=== PATIENT | female | born 1930 | race Caucasian/White ===

== ENCOUNTER 2019-05-29 14:01 | Inpatient (IN) | payer MEDICARE ==
[~2019-05-29] VITALS: Ht 160 cm; Wt 83.2 kg
[~2019-05-29 14:01] MED LIST: ARMOUR THYROID PO; BACTRIM DS TAB1 EACH PO; DILTIAZEM ER240 M1 PO; I-CAPS AREDS S1 EACH PO; ULTRAM50 MG PO
[2019-05-29 15:57] LABS: CLARITY,URINE SL CLOUDY (CLEAR); COLOR,URINE COLORLESS (YELLOW); KETONES,URINE NEGATIVE (NEGATIVE); LEUKOCYTE ESTERASE ,URINE SMALL (NEGATIVE); NITRITE,URINE NEGATIVE (NEGATIVE); PROTEIN,URINE DIPSTICK 1+ (NEGATIVE)
[2019-05-29 15:58] LABS: BACTERIA,URINE FEW /HPF; BILIRUBIN,URINE NEGATIVE (NEGATIVE); EPITHELIAL CELLS,URINE FEW /LPF; URINE UROBILINOGEN 0.2 mg/dL (0.2 - 1)
--- NOTE | 2019-05-29 16:45 | Diagnostic Imaging Report ---
EXAMINATION: CHEST SINGLE (NOT PORTABLE) INDICATION: Shortness of breath COMPARISON: Chest radiograph of 06/17/2014 FINDINGS: LINES/TUBES:None LUNGS:The right lung is moderately inflated. The left lung volume is low. Bibasilar airspace opacities silhouette both hemidiaphragms. There is perihilar fullness and indistinctness of the pulmonary vasculature. PLEURA:Small bilateral pleural effusions left greater than right. MEDIASTINUM:Cardiomegaly, increased from 06/17/2014. Atherosclerotic calcifications of the thoracic aorta. BONES/SOFT TISSUES:No acute osseous injury. ABDOMEN:No free air under the diaphragm. IMPRESSION: Cardiomegaly and pulmonary edema. Small bilateral pleural effusions left greater than right. Bibasilar airspace opacities, more likely subsegmental atelectasis than superimposed aspiration or pneumonia. Signed by: Jarrett Sheppard MD on 05/29/2019 4:42 PM
[2019-05-29 18:04] LABS: BASOPHILS % 0.5 % (0.0-1.0); EOSINOPHILS # (AUTO) 0.1 (0.0-0.4); EOSINOPHILS % 2.1 % (0.0-6.0); HEMATOCRIT 45.1 % (34.2-44.1); LYMPHOCYTES % 15.3 % (18.0-39.1); MEAN CORPUSCULAR HEMOGLOBIN 28.7 pg (28-32); MEAN CORPUSCULAR VOLUME 92.4 fL (81-99); MONOCYTES # (AUTO) 0.9 (0.2-0.8); MONOCYTES % 13.4 % (4.4-11.3); NEUTROPHILS # (AUTO) 4.3 (2.1-6.9); NEUTROPHILS % 67.8 % (38.7-80.0); PLATELET COUNT 184 x10e3/uL (140-360); RED BLOOD COUNT 4.88 x10e6/uL (3.6-5.1)
[2019-05-29 18:12] LABS: INR 0.95; PROTHROMBIN TIME 13.2 seconds (11.9-14.5)
[2019-05-29 18:13] LABS: PARTIAL THROMBOPLASTIN TIME 29.6 seconds (23.8-35.5)
[2019-05-29 18:21] LABS: ALBUMIN 3.5 g/dL (3.5-5.0); ALBUMIN/GLOBULIN RATIO 1.1 (0.8-2.0); ANION GAP 12.6 mmol/L (8-16); CALCIUM 9.3 mg/dL (8.4-10.2); CREATININE, SERUM 1.18 mg/dL (0.57-1.11); POTASSIUM 4.6 mmol/L (3.5-5.1)
[2019-05-29 18:27] LABS: CREATINE KINASE MB 6.1 ng/mL (0-5.0)
[2019-05-29] MEDS ORDERED: ONDANSETRON HCL INJ 2MG/ML 2ML 2 MG/ML VIAL IV PRN (19:00)
[2019-05-29] MEDS ORDERED: FUROSEMIDE INJ 10 MG/ML 4 ML VIAL IV ONE (19:00)
--- OUTSIDE RECORDS SUMMARY | 2019-05-29 19:26 | XMS REPORT ---
Author Author [facility] Address Unknown Phone Unavailable Care Team Providers Care Physician Aide Name Role Phone Mandie CABRERA FERNANDO Unavailable Unavailable Problems This patient has no known problems. Allergies, Adverse Reactions, Alerts This patient has no known allergies or adverse reactions. Medications This patient has no known medications. Results Test Description Test Time Test Comments Text Results Atomic Results Result Comments CHEST SINGLE (NOT PORTABLE) 2019-05-29 16:40:00 [place] [address] Patient Name: TYRONE URBINA MR #: [id number] : 1930 Age/Sex: 88/F Req #: [id number] Adm Physician: Ordered by: OSIRIS IRAHETA FISHING VESSEL OPERATOR Report #: [id number] Location: ER Room/Bed: Procedure: [id number] DX/CHEST SINGLE (NOT PORTABLE) Exam Date: 05/29/19 Exam Time: 1600 REPORT STATUS: Signed EXAMINATION: CHEST SINGLE (NOT PORTABLE) INDICATION: Shortness of breath COMPARISON: Chest radiograph of 06/17/2014 FINDINGS: LINES/TUBES:None LUNGS:The right lung is moderately inflated. The left lung volume is low. Bibasilar airspace opacities silhouette both hemidiaphragms. There is perihilar fullness and indistinctness of the pulmonary vasculature. PLEURA:Small bilateral pleural effusions left greater than right. MEDIASTINUM:Cardiomegaly, increased from 06/17/2014. Atherosclerotic calcifications of the thoracic aorta. BONES/SOFT TISSUES:No acute osseous injury. ABDOMEN:No free air under the diaphragm. IMPRESSION: Cardiomegaly and pulmonary edema. Small bilateral pleural effusions left greater than right. Bibasilar airspace opacities, more likely subsegmental atelectasis than superimposed aspiration or pneumonia. Signed by: Murali Carter MD on 05/29/2019 4:42 PM Dictated By: MURALI CARTER MD 1642 Tra nscribed By: LEE ANN on 05/29/191641 COPY TO: OSIRIS IRAHETA NP
--- NOTE | 2019-05-29 19:55 | NUR ---
Received patient from ER. Patient resting in bed, no s/s of distress or c/o pain at this time. All safety measures in place. Family at bedside. Will continue to monitor.
[2019-05-29 20:44] VITALS: BP 144/82
[2019-05-29 20:45] VITALS: BP 144/82
[2019-05-29 20:48] VITALS: BP 144/82
[2019-05-29] MEDS: NITROGLYCERIN 2% OINT 1 GM PKT TOP SCH (21:19)
[2019-05-29 23:00] VITALS: BP 112/68
[2019-05-30] VITALS (9 sets, daily range): BP systolic 125–154; BP diastolic 63–92
[2019-05-30 01:27] LABS: CREATINE KINASE MB 4.6 ng/mL (0-5.0)
[2019-05-30] MEDS: NITROGLYCERIN 2% OINT 1 GM PKT TOP SCH (02:48)
[2019-05-30 05:48] LABS: BASOPHILS % 0.4 % (0.0-1.0); EOSINOPHILS # (AUTO) 0.1 (0.0-0.4); EOSINOPHILS % 2.4 % (0.0-6.0); HEMATOCRIT 42.7 % (34.2-44.1); HEMOGLOBIN 13.2 g/dL (12.0-16.0); LYMPHOCYTES # (AUTO) 0.7 (1.0-3.2); LYMPHOCYTES % 13.8 % (18.0-39.1); MEAN CORPUSCULAR HEMOGLOBIN 28.8 pg (28-32); MEAN CORPUSCULAR HGB CONC 30.9 g/dL (31-35); MEAN CORPUSCULAR VOLUME 93.2 fL (81-99); MONOCYTES # (AUTO) 0.9 (0.2-0.8); MONOCYTES % 16.9 % (4.4-11.3); NEUTROPHILS # (AUTO) 3.6 (2.1-6.9); NEUTROPHILS % 66.1 % (38.7-80.0); PLATELET COUNT 169 x10e3/uL (140-360); RED BLOOD COUNT 4.58 x10e6/uL (3.6-5.1)
[2019-05-30 06:10] LABS: ALBUMIN 3.1 g/dL (3.5-5.0); ALBUMIN/GLOBULIN RATIO 1.1 (0.8-2.0); ANION GAP 12.6 mmol/L (8-16); CALCIUM 8.9 mg/dL (8.4-10.2); CHOL/HDL RATIO 2.3 (3.0-3.6); CREATININE, SERUM 1.08 mg/dL (0.57-1.11); POTASSIUM 4.6 mmol/L (3.5-5.1)
[2019-05-30 06:27] LABS: CREATINE KINASE MB 4.7 ng/mL (0-5.0)
--- NOTE | 2019-05-30 07:19 | NUR ---
Bedside report given to oncoming nurse. Patient resting in bed, no s/s of distress or c/o pain at this time. All safety measures in place.
[2019-05-30] MEDS: ASPIRIN 81 MG ENTERIC COATED PO SCH (08:35)
[2019-05-30] MEDS: FUROSEMIDE INJ 10 MG/ML 4 ML VIAL IV SCH (10:47)
[2019-05-30] MEDS: THYROID 60 MG TAB PO SCH (10:47)
[2019-05-30] MEDS ORDERED: LEVOFLOXACIN 500 MG TAB PO SCH (11:15)
--- NOTE | 2019-05-30 11:23 | NUR ---
Notified Dr. Melo of redness and swelling to bilat lower ext. Received orders for Levaquin 500mg po daily.
[2019-05-30 13:50] LABS: CREATINE KINASE MB 5.6 ng/mL (0-5.0)
--- NOTE | 2019-05-30 17:09 | Consultation ---
DATE OF CONSULTATION: 05/30/2019 Cardiac Consultation REASON FOR THE CONSULTATION: Congestive heart failure, aortic stenosis, cellulitis of the lower extremity. HISTORY OF PRESENT ILLNESS: This is an 88-year-old lady, who is known to me for many years. Last seen in my office in May 2016. As per the patient's son, all the information taken from him. She moved to [facility] with her dementia almost 18 months ago. She came to here because it was such she was having irregular heart beating, but the main reason really was congestive heart failure. Swelling of the lower extremities, cough. Chest x-ray showed possible pneumonia, so patient came to this institution. Apparently, the patient was having easy fatigability, shortness of breath on exertion. She does have some orthopnea, but no paroxysmal nocturnal dyspnea. Her leg swelling is progressively worse. Redness noted on both shins. Her cardiac symptoms are easy fatigability, shortness of breath on exertion. No chest pain, class 3 to early class 4. There is orthopnea, possible paroxysmal nocturnal dyspnea. No syncope or presyncope. Swelling of the lower extremities, progressively worse. REVIEW OF SYSTEMS: GENERAL: The patient is forgetful. She walks with help of walker. She lives in assisted living place. She is nonsmoker and non-alcohol drinker. HEENT: Decreased hearing. PULMONARY AND CARDIAC: As per acute illness. No cough. No hemoptysis. GI: Belching, constipation at time. No nausea. No vomiting. HEMATOLOGY: Easy bruising, but no bleeding. : Incontinence. MUSCULOSKELETAL: Abnormal gait, knee pain. Peripheral vascular varicosity and chronic swelling of the lower extremities. SKIN: There are skin changes of the lower extremities. NEUROLOGIC: The patient is very, very forgetful and she is dependent on her care on the maintenance assistant she received. PAST MEDICAL HISTORY: 1. Aortic stenosis, latest echo done in our office in 2015 showed mean gradient of 27 mm, peak gradient of 50 mm with mild aortic and mitral regurgitation with trivial pericardial regurgitation. 2. Hypertension. 3. Hypothyroidism. 4. History of ovarian cancer status post chemotherapy and finished in September 2013. 5. Varicose vein. 6. 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 7. Stress fracture of the foot in 2012. 8. Obesity. 9. Hysterectomy. 10. Cholecystectomy. 11. Bilateral cataract surgery. 12. . 13. Appendectomy. 14. Bladder suspension. 15. Thyroidectomy. 16. Cyst removal of the right breast. 17. Umbilical hernia surgery. 18. Collagen implant in the bladder. 19. Incisional hernia surgery. 20. Right eye skin cancer. 21. Mesh placement in 2004 for incisional hernia. 22. Repeated urinary tract infection. SOCIAL HISTORY: She is a . She lost her . She stopped smoking in 1996. She used to be social alcohol drinker, but not anymore. She is retired from [employer]. HOME MEDICATIONS: Include Cartia 240 mg a day, Wayne Thyroid 60 mg a day, multivitamins, aspirin, and Lasix p.r.n. Bactrim for urinary tract infection. ALLERGIES: KEFLEX, FENTANYL, SYNTHROID, AMOXICILLIN, CLINDAMYCIN, MORPHINE, CODEINE. FAMILY HISTORY: Mother at age 81, complication of diabetes mellitus. Father at age 61 following CVA. One of her brother had already open-heart surgery. One sister, she got some mental problem. Two son, one son diabetic and he had already PCI, one daughter healthy. PHYSICAL EXAMINATION: GENERAL: Very nice lady. VITAL SIGNS: Height of 5 feet 3 inches, weight of 185 pounds, blood pressure 140/60, heart rate of 60, respiratory rate of 18. HEENT: Pupil are reactive. NECK: No elevation of jugular venous pulsation. CHEST: Bilateral crackles. HEART: Aortic stenosis murmur. ABDOMEN: Soft. EXTREMITIES: Dependent edema on the lower extremity all the way to the knee and then more edema is noted above the knee posteriorly. There is redness on her both shins. NEUROLOGIC: The patient is forgetful, but she is able to move her extremities. LABORATORY DATA: Sodium of 141, potassium 4.6, BUN 22, creatinine of 1. White blood cell count of 5.3, hemoglobin of 13.2, hematocrit 42%, and platelet count 169,000. EKG is not available, but looking at her echocardiogram, there is evidence of bundle-branch block. IMPRESSION AND PLAN: 1. Diastolic heart failure. 2. Arctic stenosis. 3. Dementia. 4. Hypertension. 5. Obesity. 6. Degenerative joint disease. 7. Survivor of ovarian cancer. 8. Edema, possible cellulitis of the lower extremities. 9. Repeated urine tract infection. 10. Hypothyroidism. My recommendation will be as follows: Gentle diuresis to help the leg edema and swelling, getting EKG. I will review her echocardiogram, which is already done, taking venous Doppler of the lower extremities to rule out DVT. Deep venous thrombosis prophylaxis. We can continue the Cardizem and Wayne Thyroid and aspirin, we will decrease it to 81 mg a day. I discussed the case with her son at length. We decided to treat her medically since the patient is having dementia, so for her cardiac issue treatment will be medical. We will follow the patient's progression with you. I would like to thank you for your kind referral. MD LALIT Gomez/MODL /[id number]
--- NOTE | 2019-05-30 19:40 | NUR ---
Received bedside report from day nurse. Assisted patient to restroom using walker. Patient now resting in bed, no s/s of distress or c/o pain at this time. All safety measures in place. Will continue to monitor.
[2019-05-31] VITALS (8 sets, daily range): BP systolic 107–170; BP diastolic 56–86
--- NOTE | 2019-05-31 02:13 | NUR ---
Patient had unwitnessed fall at 0144. Bed alarm went off. Upon entering room, patient found sitting on floor next to bed, platform walker within reach, O2 nasal cannula still in place. Stated that she had been trying to get out of bed. Last taken to restroom at 0009, last rounded on at 0057. Nursing staff had been assisting patient to restroom prior to this event. Upon admission, patient had been instructed to call for assistance prior to getting out of bed, with family present to reinforce teaching. Patient had verbalized understanding and had been able to demonstrate proper use of call light. Patient had been alert and oriented upon last round. Bed was locked and in low position, side rails up x3, call light placed within reach, bed alarm on. Toileting had been offered, but patient had stated that she wanted to get some sleep. Patient alert and oriented post-fall, neuro checks and assessment performed. Vital signs stable. C/o pain to left hip and left knee, with bruise noted below left knee. Dr. Melo notified at 0154. Stat x-rays of hip and knee ordered. Family notified at 0209. Will continue to monitor patient.
--- NOTE | 2019-05-31 02:37 | NUR ---
Patient leaving unit for x-ray via bed. In stable condition.
--- NOTE | 2019-05-31 03:03 | NUR ---
Patient returned to unit from x-ray. C/o pain to left lower extremity. Ice pack applied.
--- NOTE | 2019-05-31 03:29 | Diagnostic Imaging Report ---
HIP LEFT 2-3 VW (+/- PELVIS) - 3 views HISTORY: Pain COMPARISON: None available. IMPRESSION: Left femoral intertrochanteric fracture with superolateral displacement. Signed by: Dr. Weston Hawkins MD on 05/31/2019 3:27 AM
--- NOTE | 2019-05-31 03:30 | Diagnostic Imaging Report ---
KNEE LEFT 1-2 VIEWS - 2 views HISTORY: Pain COMPARISON: None available. FINDINGS: Bones: No acute displaced fracture. Osseous alignment is within normal limits. Joints: Tricompartmental degenerative changes. Soft tissues: Mild subcutaneous edema. IMPRESSION: No acute fracture or dislocation of the left knee. Degenerative changes. Signed by: Dr. Weston Hawkins MD on 05/31/2019 3:28 AM
--- NOTE | 2019-05-31 05:15 | NUR ---
Placed call to Dr. Hamlin regarding consult for fracture and dislocated left hip. Spoke with answering service. Awaiting return call at this time.
[2019-05-31] MEDS: THYROID 60 MG TAB PO SCH (05:19)
[2019-05-31 06:22] LABS: BASOPHILS % 0.3 % (0.0-1.0); EOSINOPHILS # (AUTO) 0.1 (0.0-0.4); EOSINOPHILS % 0.9 % (0.0-6.0); HEMATOCRIT 45.6 % (34.2-44.1); HEMOGLOBIN 13.5 g/dL (12.0-16.0); LYMPHOCYTES # (AUTO) 0.6 (1.0-3.2); LYMPHOCYTES % 6.3 % (18.0-39.1); MEAN CORPUSCULAR HEMOGLOBIN 28.2 pg (28-32); MEAN CORPUSCULAR HGB CONC 29.6 g/dL (31-35); MEAN CORPUSCULAR VOLUME 95.4 fL (81-99); MONOCYTES # (AUTO) 0.9 (0.2-0.8); MONOCYTES % 8.8 % (4.4-11.3); NEUTROPHILS # (AUTO) 8.1 (2.1-6.9); NEUTROPHILS % 83.1 % (38.7-80.0); PLATELET COUNT 161 x10e3/uL (140-360); RED BLOOD COUNT 4.78 x10e6/uL (3.6-5.1); RED CELL DISTRIBUTION WIDTH 14.8 % (11.7-14.4)
--- NOTE | 2019-05-31 06:58 | NUR ---
Dr. Melo here to see patient. Received orders to insert Vu, change Levaquin from PO to IV, and give IV Tylenol 1 g Q6 PRN for pain.
[2019-05-31 06:59] LABS: ALBUMIN 3.2 g/dL (3.5-5.0); ALBUMIN/GLOBULIN RATIO 1.1 (0.8-2.0); ANION GAP 16.5 mmol/L (8-16); CALCIUM 9.3 mg/dL (8.4-10.2); CHOL/HDL RATIO 2.2 (3.0-3.6); CREATININE, SERUM 1.1 mg/dL (0.57-1.11); POTASSIUM 4.5 mmol/L (3.5-5.1)
[2019-05-31] MEDS ORDERED: ACETAMINOPHEN 1000 MG/100 ML IV PRN (07:00)
--- NOTE | 2019-05-31 07:11 | NUR ---
Report given to oncoming nurse. Patient resting in bed, no s/s of distress at this time. C/o of pain to left lower extremity. Ice pack provided. All safety measures in place. Bed locked and in low position, bed alarm, call light placed within reach, side rails up x3. Patient instructed to call for assistance if needed, verbalized and demonstrated understanding.
[2019-05-31 07:28] LABS: THYROID STIMULATING HORMONE 1.15 uIU/mL (0.350-4.940)
[2019-05-31] MEDS ORDERED: SODIUM CHLORIDE 0.9% 250ML 250 ML ONE (08:00)
[2019-05-31] MEDS: FUROSEMIDE INJ 10 MG/ML 4 ML VIAL IV SCH (08:23)
[2019-05-31] MEDS: ASPIRIN 81 MG ENTERIC COATED PO SCH (09:00)
[2019-05-31] MEDS ORDERED: DILTIAZEM HCL 180 MG CAP ER PO SCH (09:00)
--- NOTE | 2019-05-31 10:00 | NUR ---
Notified Dr. Rizzo that pt is running AFIB. Also let him know that pt needs. Cardiac clearance for possible surgery. Dr. Rizzo states she is cleared for surgery from his standpoint.
--- NOTE | 2019-05-31 10:51 | NUR ---
Repaged Dr. Hamlin about new consult at this time. Waiting for callback.
--- NOTE | 2019-05-31 11:00 | NUR ---
Notified Dr. Melo that pt is still having a lot of pain to left hip. Received orders to start Tramadol 50mg PO q4hr.
[2019-05-31] MEDS: LEVOFLOXACIN 500MG/D5W 100ML 100 ML IV SCH (11:07)
[2019-05-31] MEDS: TRAMADOL HCL 50 MG TAB PO PRN ×2 (11:29→15:49)
--- NOTE | 2019-05-31 15:42 | NUR ---
Nutrition Screen Note RD Recommendation for Physician: Continue diet as ordered Plan of Care: RD following, monitoring for tolerance and adequacy Nutrition reason for involvement: New onset heart failure Primary Diagnose(s): New onset heart failure PMH: HTN, repeat UTI, Hypothyroid, Cholecystectomy, obesity, dementia, thyroidectomy, Ht:63 in Wt:185.70lb BMI:32.9 kg/m2 IBW:115lb +/-10% RD Assessment: (05/31/2019) Chart reviewed. Labs and meds reviewed. Initial encounter with patient. Pt with a fall last night with hip fx. Pt with a good PO intake, Pt denies any nausea or vomiting. Pt denies any difficulty chewing or swallowing. Pt is a resident of an assisted living facility. Discussed low sodium diet with Pt and family. Current Diet: Cardiac diet Malnutrition Evaluation (05/31/2019) The patient does not meet criteria for a specified degree of malnutrition at this time. Will re-evaluate at follow-up as appropriate. Diet Education Needs Assessment: Diet education not indicated. Nutrition Care Level: Low Signed: Phillip Vazquez RD, LD, [facility]
[2019-06-01] VITALS (26 sets, daily range): BP systolic 84–147; BP diastolic 47–93
--- NOTE | 2019-06-01 00:09 | Consultation ---
DATE OF CONSULTATION: 05/31/2019 Consultation Report CHIEF COMPLAINT: Left hip pain. HISTORY OF PRESENT ILLNESS: This patient is an 88-year-old female, who complains of left hip pain after suffering a fall early this morning in the hospital. She was hospitalized 2 days ago for congestive heart failure. The patient has a history of dementia. Further history was obtained from the family and the nurse. Apparently, she was trying to get up from the hospital bed and fell to the floor. She was unable to get up and bear weight on the left leg. X-rays were obtained, which show a left hip fracture and thus Orthopedics were consulted. PAST MEDICAL HISTORY: See H and P. SOCIAL HISTORY: The patient is a . She is a former smoker and social drinker. She currently lives in assisted living. MEDICATIONS: See MAR. ALLERGIES: KEFLEX, FENTANYL, SYNTHROID, AMOXICILLIN, CLINDAMYCIN, MORPHINE, AND CODEINE. PHYSICAL EXAMINATION: GENERAL: This is a pleasant, well-nourished female, who exhibits signs of mild dementia. She is awake and alert. She is in no apparent distress. EXTREMITIES: Her left lower extremity is in Bennett's traction. She has shortening of the left lower extremity. Any attempts of passive range of motion of the left hip elicit pain. She has mild lower extremity edema. She can wiggle her toes, though left foot is grossly sensate. Tibial pulse and pedal pulse are both palpable. IMAGING: X-rays of the left hip and pelvis were obtained. These show a displaced left intertrochanteric hip fracture. ASSESSMENT AND PLAN: This is an 88-year-old female with a left hip fracture. The findings and options were discussed with the patient and her family present. She ambulated with a walker prior to the surgery. Her family indicates that she was fairly independent of her ADLs. The treatment was discussed. The risks and benefits of closed reduction and internal fixation with an IMHS nail were explained in detail. The difficult recovery was explained. Increased difficulties in participating in physical therapy, secondary to her dementia were explained. She has already been cleared from a cardiac standpoint. The family and the patient state they understand and wish to proceed with surgery. We will anticipate proceeding with surgery early tomorrow morning. Dictated by Brody Freed PA-C MD MURALI Byrne/KUMARL /[id number]
[2019-06-01] MEDS: TRAMADOL HCL 50 MG TAB PO PRN (02:04)
[2019-06-01] MEDS ORDERED: VANCOMYCIN 1GM/NS 250 ML 250 ML IV SCH ×2 (05:30→11:45)
[2019-06-01] MEDS: THYROID 60 MG TAB PO SCH (06:28)
--- NOTE | 2019-06-01 07:40 | NUR ---
PATIENT IS ALERT TO SELF AND IN STABLE CONDITION WITH NO S/S OF RESPIRATORY DISTRESS- PATIENT DENIES PAIN. TELEMETRY APPLIED AND 02 SET AT 2L NC. FOX IN PLACE; URINE IS YELLOW AND CLEAR. PATIENT'S LEFT LOWER EXTREMITY IS IN CAICEDO'S TRACTION 5LBS. BRUISE NOTED TO LEFT LOWER LEG BELOW KNEE. BED ALARM APPLIED. CALL LIGHT IS WITHIN REACH OF PATIENT AND PATIENT INSTRUCTED TO CALL FOR ASSISTANCE NEEDED.
[2019-06-01] MEDS ORDERED: VANCOMYCIN 1GM/NS 250 ML 250 ML IV ONE (08:00)
[2019-06-01] MEDS: VANCOMYCIN 1GM/NS 250 ML 250 ML IV SCH ×2 (08:06→20:00)
[2019-06-01] MEDS: FUROSEMIDE INJ 10 MG/ML 4 ML VIAL IV SCH (08:06)
[2019-06-01] MEDS: ASPIRIN 81 MG ENTERIC COATED PO SCH (08:06)
--- NOTE | 2019-06-01 09:41 | NUR ---
PATIENT OFF THE UNIT PER BED TO OR FOR PROCEDURE. PATIENT IN STABLE CONDITION WITH NO S/S OF RESPIRATORY DISTRESS. TELEMETRY APPLIED. FOX INTACT AND URINE DRAINING. FAMILY (CHILDREN)PRESENT AND FOLLOWING THE PATIENT OFF THE FLOOR.
[2019-06-01] MEDS ORDERED: HEPARIN SOD/SOD CHLORIDE 1,000 ML ONE (09:54)
[2019-06-01] MEDS ORDERED: HYDROMORPHONE 1MG/1ML INJ ONE (10:03)
[2019-06-01] MEDS ORDERED: SODIUM CHLORIDE 0.9% 50ML 50 ML ONE (10:11)
[2019-06-01] MEDS: LEVOFLOXACIN 500MG/D5W 100ML 100 ML IV SCH (11:00)
[2019-06-01] MEDS ORDERED: SUGAMMADEX SODIUM 200 MG/2 ML VIAL IV ONE (11:17)
[2019-06-01] MEDS ORDERED: ZOLPIDEM TARTRATE 5 MG TAB PO PRN (11:45)
[2019-06-01] MEDS ORDERED: DIPHENHYDRAMINE HCL INJ 50 MG/ML VIAL IM/IV PRN (11:45)
[2019-06-01] MEDS ORDERED: ONDANSETRON HCL INJ 2MG/ML 2ML 2 MG/ML VIAL IV PRN (11:45)
[2019-06-01] MEDS ORDERED: PROMETHAZINE HCL (IM) 25 MG/ML VIAL IM PRN (11:45)
[2019-06-01] MEDS ORDERED: DOCUSATE SODIUM 100 MG CAP PO PRN (11:45)
[2019-06-01] MEDS: ACETAMINOPHEN 1000 MG/100 ML IV SCH ×2 (12:00→18:58)
[2019-06-01] MEDS ORDERED: ALBUMIN 25% 12.5GM 50ML 50 ML IV ONE (12:51)
[2019-06-01 12:59] LABS: ABG HCO3 30 mmol/L (23-28); ABG PCO2 53 mmHg (41-51); ABG PH 7.35 (7.31-7.41); ABG PO2 196 mmHg (80-105)
[2019-06-01] MEDS ORDERED: VASOPRESSIN 100 UNIT in DEXTROSE 5% 100ML 100 ML IV PRN (14:15)
--- NOTE | 2019-06-01 14:30 | NUR ---
patient received from pacu via bed. epi infusing at 13mcg/min. Dr Rizzo in and instructed to start vasopressin and wean off epi. awaiting vaso drip. left hip dressing dry and intact. see shift assess. restraints to be initiated. labs and blood gas being done and results will be called to Dr Leo for further orders. family wants no compressions or shocks . will monitor status closely.
[2019-06-01] MEDS: MIDAZOLAM HCL 2 MG/2 ML VIAL IV PRN ×3 (14:52→19:57)
[2019-06-01] MEDS ORDERED: DEXMEDETOMIDINE HCL 200 MCG in SODIUM CHLORIDE 0.9% 50ML 48 ML IV PRN (15:00)
[2019-06-01] MEDS: SODIUM CHLORIDE 0.9% 1000ML 1,000 ML IV SCH ×2 (15:00→22:16)
[2019-06-01 15:05] LABS: BASOPHILS % 0.1 % (0.0-1.0); EOSINOPHILS % 0.1 % (0.0-6.0); HEMATOCRIT 32.7 % (34.2-44.1); HEMOGLOBIN 10.1 g/dL (12.0-16.0); LYMPHOCYTES # (AUTO) 0.7 (1.0-3.2); LYMPHOCYTES % 5.1 % (18.0-39.1); MEAN CORPUSCULAR HEMOGLOBIN 28.6 pg (28-32); MEAN CORPUSCULAR HGB CONC 30.9 g/dL (31-35); MEAN CORPUSCULAR VOLUME 92.6 fL (81-99); MONOCYTES # (AUTO) 0.5 (0.2-0.8); MONOCYTES % 4.1 % (4.4-11.3); NEUTROPHILS # (AUTO) 11.9 (2.1-6.9); PLATELET COUNT 131 x10e3/uL (140-360); RED BLOOD COUNT 3.53 x10e6/uL (3.6-5.1); RED CELL DISTRIBUTION WIDTH 14.7 % (11.7-14.4)
[2019-06-01 15:06] LABS: ABG PH 7.37 (7.31-7.41)
[2019-06-01 15:07] LABS: ABG HCO3 29 mmol/L (23-28); ABG PCO2 51 mmHg (41-51); ABG PO2 222 mmHg (80-105)
[2019-06-01 15:26] LABS: ALBUMIN 2.5 g/dL (3.5-5.0); ALBUMIN/GLOBULIN RATIO 1.3 (0.8-2.0); ANION GAP 20.7 mmol/L (8-16); CALCIUM 7.4 mg/dL (8.4-10.2); CREATININE, SERUM 1.21 mg/dL (0.57-1.11); POTASSIUM 3.7 mmol/L (3.5-5.1)
[2019-06-01 15:34] LABS: CREATINE KINASE MB 8.1 ng/mL (0-5.0)
[2019-06-01] MEDS: ASPIRIN 325 MG TAB PO SCH (15:34)
[2019-06-01] MEDS: CELECOXIB 200 MG CAP PO SCH (15:35)
[2019-06-01] MEDS: MIDAZOLAM HCL 25 MG in SODIUM CHLORIDE 0.9% 50ML 45 ML IV PRN ×2 (16:46→19:57)
--- NOTE | 2019-06-01 17:13 | Diagnostic Imaging Report ---
EXAMINATION: CHEST SINGLE (PORTABLE) INDICATION: Intubation COMPARISON: Chest radiograph 05/29/2019 FINDINGS: LINES/TUBES:Interval intubation. Endotracheal tube terminates 4 cm above the jannette. Right IJ central venous catheter terminates in the superior vena cava. EKG leads overlie the chest. LUNGS:The lungs are moderately inflated. There is perihilar fullness and indistinctness of the pulmonary vasculature. There is left basilar opacity silhouetting the left gauri diaphragm. PLEURA:Unchanged left pleural effusion. No pneumothorax. MEDIASTINUM:Cardiomediastinal silhouette is stably enlarged. Atherosclerotic calcifications of the thoracic aorta. BONES/SOFT TISSUES:No acute osseous injury. ABDOMEN:No free air under the diaphragm. IMPRESSION: Endotracheal tube terminates 4 cm above the jannette. Unchanged cardiomegaly and pulmonary edema. Moderate left pleural effusion. Mild interval increase in patchy opacity at the left lung base, more likely subsegmental atelectasis than superimposed aspiration or pneumonia. Signed by: Jarrett Sheppard MD on 06/01/2019 5:10 PM
--- NOTE | 2019-06-01 17:30 | NUR ---
Holding physical therapy services due to medical status change. Patient is currently intubated in ICU. Will need new PT orders when appropriate. Thank you. Addendum: 06/01/19 at 1734 by Gennaro wren PT Amended: Links added.
[2019-06-01] MEDS ORDERED: ACETAMINOPHEN 1000 MG/100 ML IV ONE (18:18)
[2019-06-01] MEDS ORDERED: LIDOCAINE HCL 2% LOCAL INJ 5 ML SDV VIAL INJ ONE (18:18)
[2019-06-01] MEDS ORDERED: ATROPINE SULFATE 1 MG/ML VIAL ONE (18:18)
[2019-06-01] MEDS ORDERED: SEVOFLURANE INHAL SOLN 250 ML PEN BTL ONE (18:18)
[2019-06-01] MEDS ORDERED: ONDANSETRON HCL INJ 2MG/ML 2ML 2 MG/ML VIAL ONE (18:18)
[2019-06-01] MEDS ORDERED: ETOMIDATE 2 MG/ML 10 ML INJ IV ONE (18:18)
[2019-06-01] MEDS ORDERED: SUCCINYLCHOLINE CHLORIDE 20 MG/ML 10ML VIAL ONE (18:18)
[2019-06-01] MEDS ORDERED: PHENYLEPHRINE HCL 1% 10 MG/ML VIAL ONE (18:18)
[2019-06-01] MEDS ORDERED: DEXAMETHASONE SOD PHOS INJ 4 MG/ML VIAL ONE (18:18)
[2019-06-01] MEDS ORDERED: ROCURONIUM BROMIDE 10 MG/ML 5ML VIAL ONE (18:18)
--- NOTE | 2019-06-01 18:23 | NUR ---
epinephrine weaned off and vasopressin at 0.04. family at bs. versed at 4mg/hr. vitals stable with no distress at this time.
--- NOTE | 2019-06-01 19:19 | Operative Report ---
DATE OF PROCEDURE: 06/01/2019 SURGEON: Rogelio Hamlin MD FLAT FOLDING MACHINE OPERATOR: Brody Freed, certified PA. PREOPERATIVE DIAGNOSIS: Comminuted left intertrochanteric hip fracture. POSTOPERATIVE DIAGNOSIS: Comminuted left intertrochanteric hip fracture. PROCEDURE: Open reduction and internal fixation with long intramedullary hip screw, left hip. INDICATION: The patient is a medically frail 88-year-old lady, who fell while in the hospital. She sustained a comminuted unstable intertrochanteric fracture of her left hip. She has been cleared from a cardiologic standpoint. She has a history of dementia. We have discussed the findings and options and challenges with the family. We plan on surgical stabilization. The risks and benefits were detailed. All of their questions were answered. They stated they understood and wished to proceed. DESCRIPTION OF PROCEDURE: The patient was brought to the operating room and placed under general anesthetic. She was carefully positioned on the fracture table. Her left lower extremity was placed into gentle traction. A C-arm image intensifier was used to assist in visualizing the fracture alignment. The left hip was then prepped and draped in a sterile manner. A preoperative time-out was performed. An incision was made proximal to the tip of the greater trochanter. A curved awl was used to introduce a guide pin down this shaft to the femoral canal. Bone quality was noted to be very poor and I could easily place the guide pin through the bone. The femoral canal was then carefully over-reamed to 14 mm, this accomplished some endosteal platter with the 14 mm reamer. A Nathan/Biomet 13 mm x 380 mm long intramedullary hip screw was then placed into the femoral canal. This was lined up on the C-arm image intensifier to place 100 mm lag screw into the femoral head, this was placed under some compression and a locking screw was tensioned in the nail. No distal fixation was felt to be necessary. The wound was carefully irrigated. The deep fascia and skin were closed with Vicryl stitches. Mastisol and Steri-Strips were placed. Estimated blood loss was 50 mL. At the end of the procedure, all needle and sponge counts were correct. Rogelio Hamlin MD DR/JEREMIAH /[id number]
[2019-06-01 21:19] LABS: ANISOCYTOSIS SLIGHT; HYPOCHROMASIA SLIGHT; OVALOCYTES FEW; PLATELET ESTIMATE SLIGHTLY DECREASED; PLATELET MORPHOLOGY COMMENT NORMAL
[2019-06-01 21:20] LABS: RBC MORPHOLOGY COMMENT NORMAL
[2019-06-02] VITALS (28 sets, daily range): BP systolic 12–154; BP diastolic 46–106
--- NOTE | 2019-06-02 00:11 | Consultation ---
DATE OF CONSULTATION: 06/01/2019 Pulmonary Critical Care Medicine Consult ADDITIONAL REFERRING PHYSICIAN: Raj Melo MD REASON FOR REFERRAL: Arrest. HISTORY OF PRESENT ILLNESS: Ms. Cruz is a pleasant 88-year-old female who is status post arrest. The patient presented to [facility] on May 29, 2019. At that time, the patient had assessment of shortness of breath. The patient is having some increased swelling in the lower extremities. There was some additional cough. Chest x-ray suggested some fluid overload pattern, so she came to the emergency room. She was admitted. The patient had echo with 65-70 percent LVEF, aortic valve area 0.9 cm2, RVSP 31 estimated. She was admitted, but while she was admitted, she had a fall. She had a left hip fracture. The patient went for operative repair, which was done successfully. The patient postoperatively was noted to have arrest after extubation. After reportedly about 1-1/2 minutes of CPR, she had return of circulation. The patient was left intubated and sent to the ICU. Pressures were normal. She was then intubated. PAST MEDICAL HISTORY: Aortic stenosis, hypertension, hypothyroidism, ovarian cancer status post chemotherapy in September 2013, degenerative joint disease, stress fracture of foot 2012, obesity, hysterectomy, cholecystectomy, bilateral cataract surgery, , appendectomy, bladder suspension, thyroidectomy, cyst removal of the right breast, umbilical hernia surgery, bladder implant, incisional hernia surgery, right eye skin cancer, incisional hernia in 2004, mesh placement repair. MEDICATIONS: Medication list reviewed per the chart record. ALLERGIES: FENTANYL, ADHESIVE TAPE, CLINDAMYCIN, CEPHALEXIN, LEVOTHYROXINE, CODEINE, MORPHINE. FAMILY HISTORY: Noncontributory to this condition. SOCIAL HISTORY: No drinking. No drugs. The patient smokes all her life and quit at age 68, and she smoked one pack per day. The patient was able to walk with a walker for 10 to 100 feet depending on her condition that day. The patient lives at assisted living. She is . Conversations were on and off depending on how good her memory was. REVIEW OF SYSTEMS: Cannot get as she is intubated. OBJECTIVE: VITAL SIGNS: Vital signs now more stable, but they were kind of unstable throughout the day. HEENT: Normocephalic, atraumatic. GENERAL: Generally in bed, intubated, on life support, nursing reports that patient was awake. NECK: Supple. Throat midline. LUNGS: Bilateral air entry, decreased breath sounds, few rhonchi. ABDOMEN: Soft, nontender. CARDIOVASCULAR: S1, S2. There is a systolic flow murmur . EXTREMITIES: No clubbing, no cyanosis. There is 2+ edema in legs. INTEGUMENT: No rash. No purpura. LABORATORY DATA: . IMPRESSION AND PLAN: 1. Acute respiratory failure, intubated. 2. Status post cardiac arrest, possibly related to her cirrhosis. 3. Hip fracture status post operative repair. 4. CHF, diastolic/aortic stenosis. 5. Possible pneumonia. 6. Shock, that is treated, now better. 7. Dementia. Hypertension, hypothyroid, history of ovarian cancer and chemotherapy finished in September 2013, degenerative joint disease, former long-term smoker. Continued intubated state. Ventilator adjustments made. The patient will have continued weaning of pressors and so far is successful. Continue initial fluid but will slow down throughout the night. Furthermore, adjust sedation based on her mentation every hour and it most likely we should be able to come down sedation even middle night. Followup blood sugars. Gentle diuresis once the patient stabilized. Greater than 30 minutes in direct care and coordination was state. Please call for questions. MD NICOLAS Carson/JEREMIAH /[id number]
[2019-06-02] MEDS: ACETAMINOPHEN 1000 MG/100 ML IV SCH ×2 (00:21→05:28)
[2019-06-02] MEDS ORDERED: DEXTROSE 50% SYRINGE 50 ML IV PRN (01:30)
[2019-06-02] MEDS: MIDAZOLAM HCL 25 MG in SODIUM CHLORIDE 0.9% 50ML 45 ML IV PRN ×2 (01:50→21:03)
[2019-06-02 05:25] LABS: HEMATOCRIT 28.8 % (34.2-44.1); HEMOGLOBIN 9.1 g/dL (12.0-16.0); LYMPHOCYTES # (AUTO) 0.4 (1.0-3.2); LYMPHOCYTES % 5.2 % (18.0-39.1); MEAN CORPUSCULAR HEMOGLOBIN 28.6 pg (28-32); MEAN CORPUSCULAR HGB CONC 31.6 g/dL (31-35); MEAN CORPUSCULAR VOLUME 90.6 fL (81-99); MONOCYTES # (AUTO) 0.5 (0.2-0.8); MONOCYTES % 6.7 % (4.4-11.3); NEUTROPHILS # (AUTO) 6.4 (2.1-6.9); NEUTROPHILS % 87.6 % (38.7-80.0); PLATELET COUNT 109 x10e3/uL (140-360); RED BLOOD COUNT 3.18 x10e6/uL (3.6-5.1); RED CELL DISTRIBUTION WIDTH 14.8 % (11.7-14.4)
[2019-06-02] MEDS: THYROID 60 MG TAB PO SCH (05:28)
[2019-06-02 05:47] LABS: ALBUMIN 2.4 g/dL (3.5-5.0); ALBUMIN/GLOBULIN RATIO 1.1 (0.8-2.0); ANION GAP 16.2 mmol/L (8-16); CALCIUM 7.5 mg/dL (8.4-10.2); CREATININE, SERUM 1.33 mg/dL (0.57-1.11); MAGNESIUM 1.4 MG/DL (1.3-2.1); POTASSIUM 4.2 mmol/L (3.5-5.1)
[2019-06-02] MEDS: INSULIN REGULAR, HUMAN 100 UNIT/1 ML 3ML VIAL SQ SCH ×3 (06:00→18:00)
--- NOTE | 2019-06-02 06:36 | Progress Note ---
DATE: 06/02/2019 SUBJECTIVE: The patient had her left hip surgery yesterday which went well, but postoperatively in the PACU after extubation, the patient had an episode where she did have a code blue situation where she was resuscitated back very quickly and was reintubated for airway protection and then sent to the ICU. While in the ICU, the patient had an uneventful night where hemodynamically she was stable. She was stable on the ventilator and cardiac enzymes have been negative. OBJECTIVE: VITAL SIGNS: Today, currently her vital signs are she is afebrile 98.6, pulse 74, blood pressure 124/76, and sats 99% on the ventilator. GENERAL: She is sedated on the vent. CARDIOVASCULAR: Regular rate and rhythm, 3/6 systolic ejection murmur at the aortic area, which is stable. LUNGS: Clear to auscultation bilaterally. ABDOMEN: Good bowel sounds. Soft, nontender. EXTREMITIES: No clubbing, cyanosis. NEUROLOGICAL: She is intubated. ASSESSMENT AND PLAN: 1. Status post code. Continue with current care, but unsure of the etiology. 2. Acute respiratory failure. Continue with weaning the ventilator. She most likely will be off the ventilator today per Pulmonary. 3. Left hip repair. We will continue with postoperative care. 4. Acute on chronic diastolic heart failure. Continue with current care per Cardiology. 5. Disposition. I did have a long talk with the son, who is very pleasant and states that he wants his mother to be a full DNR from this point on. Please see hospital chart for full details. MD GUTIERREZ Valentin/JEREMIAH /[id number]
[2019-06-02] MEDS: CELECOXIB 200 MG CAP PO SCH ×2 (08:00→18:29)
[2019-06-02] MEDS: VANCOMYCIN 1GM/NS 250 ML 250 ML IV SCH ×2 (08:03→20:00)
[2019-06-02] MEDS: FUROSEMIDE INJ 10 MG/ML 4 ML VIAL IV SCH (08:03)
[2019-06-02] MEDS: ASPIRIN 325 MG TAB PO SCH ×2 (08:04→17:26)
--- NOTE | 2019-06-02 09:35 | Diagnostic Imaging Report ---
EXAMINATION: CHEST SINGLE (PORTABLE) INDICATION: CHF COMPARISON: Chest radiograph 06/01/2019 FINDINGS: LINES/TUBES:Endotracheal tube terminates 4 cm above the jannette. Right IJ central venous catheter terminates in the superior vena cava. EKG leads overlie the chest. LUNGS:The right lung is mildly hyperinflated. Left lung volume is low. There is perihilar fullness and indistinctness of the pulmonary vasculature. There is left basilar opacity silhouetting the left gauri diaphragm. PLEURA:Moderate left pleural effusion. No pneumothorax. MEDIASTINUM:Cardiomediastinal silhouette is stably enlarged. Atherosclerotic calcifications of the thoracic aorta. BONES/SOFT TISSUES:No acute osseous injury. ABDOMEN:No free air under the diaphragm. IMPRESSION: Support lines and tubes unchanged. Unchanged cardiomegaly and pulmonary interstitial edema. Moderate left pleural effusion. Patchy opacity at the left lung base appears unchanged, more likely subsegmental atelectasis than superimposed aspiration or pneumonia. Signed by: Jarrett Sheppard MD on 06/02/2019 9:32 AM
[2019-06-02] MEDS: LEVOFLOXACIN 500MG/D5W 100ML 100 ML IV SCH (11:53)
[2019-06-02] MEDS ORDERED: HYDROCODONE/APAP 5MG-325MG TAB PO PRN (12:00)
[2019-06-02] MEDS ORDERED: ACETAMINOPHEN 1000 MG/100 ML IV PRN (12:00)
[2019-06-02] MEDS ORDERED: ACETAMINOPHEN 650 MG SUPP PR PRN (12:00)
[2019-06-02] MEDS ORDERED: HYDROCODONE/APAP 7.5MG-325MG 1 EA TAB PO PRN (12:00)
--- NOTE | 2019-06-02 15:01 | Diagnostic Imaging Report ---
Bilateral chest ultrasound History: Pleural effusion Technique/findings: Limited bilateral chest ultrasound was performed to evaluate for pleural effusion. This demonstrated moderate right and left pleural effusions, somewhat loculated on the left. IMPRESSION: Moderate right and left pleural effusions, somewhat loculated on the left. Signed by: Jarrett Sheppard MD on 06/02/2019 2:58 PM
[2019-06-02] MEDS: DEXTROSE 5% 1,000 ML IV SCH (15:29)
[2019-06-02] MEDS: SPIRONOLACTONE 25 MG TAB PO SCH (17:26)
[2019-06-02] MEDS: ENOXAPARIN SOD INJ 40 MG/0.4 ML SYR SC SCH (17:27)
--- NOTE | 2019-06-02 17:31 | NUR ---
ngt placed in right nare. no difficulty. confirmed and verified placement
[2019-06-03] VITALS (27 sets, daily range): BP systolic 24–156; BP diastolic 53–91
--- NOTE | 2019-06-03 04:56 | NUR ---
Pulmonary Critical Care Medicine DATE 06/02/2019 SUBJECTIVE : VERSED 4/ intubated on ventilator slow awakening CXr some edema, effusion REVIEW OF SYSTEMS: Cannot get as she is intubated. OBJECTIVE: VITAL SIGNS: Vital signs reviewed per EMR HEENT: Normocephalic, atraumatic. GENERAL: Generally in bed, intubated, on life support NECK: Supple. Throat midline. LUNGS: Bilateral air entry, decreased breath sounds, few rhonchi. ABDOMEN: Soft, nontender. CARDIOVASCULAR: S1, S2. systolic flow murmur EXTREMITIES: No clubbing, no cyanosis. 2+ edema in legs. INTEGUMENT: No rash. No purpura. LABORATORY DATA: per EMR cr 1.33 hct 28.8 alb 2.4 IMPRESSION AND PLAN: 1. Acute respiratory failure, intubated. 2. Status post cardiac arrest, possibly related to her cirrhosis. 3. Hip fracture status post operative repair. 4. CHF, diastolic/aortic stenosis. 5. Possible pneumonia. 6. Shock, that is treated, now better. 7. Dementia. 8. fluid overload, pleural effusion 9. Hypertension, hypothyroid, history of ovarian cancer and chemotherapy finished in September 2013, degenerative joint disease, former long-term smoker. Continued intubated state. Ventilator adjustments Daily SAT, daily SBT if criteria met Decrease IVF Diurese to commence shortly Check US chest Followup blood sugars. Thank you Dr Melo.
[2019-06-03 05:19] LABS: EOSINOPHILS % 0.1 % (0.0-6.0); HEMOGLOBIN 8.5 g/dL (12.0-16.0); LYMPHOCYTES # (AUTO) 0.6 (1.0-3.2); LYMPHOCYTES % 6.1 % (18.0-39.1); MEAN CORPUSCULAR HEMOGLOBIN 28.3 pg (28-32); MEAN CORPUSCULAR HGB CONC 31.5 g/dL (31-35); MONOCYTES # (AUTO) 0.8 (0.2-0.8); MONOCYTES % 8.5 % (4.4-11.3); NEUTROPHILS # (AUTO) 7.6 (2.1-6.9); PLATELET COUNT 106 x10e3/uL (140-360)
--- NOTE | 2019-06-03 05:22 | Progress Note ---
DATE: 06/03/2019 SUBJECTIVE: The patient did well overnight. No new issues. She was unfortunately not able to be extubated yesterday. I saw patient today for evaluation, she is currently off sedation for weaning. OBJECTIVE: VITAL SIGNS: Temperature 98.0, pulse 80, blood pressure 104/64, sats 100% on the ventilator. GENERAL: No apparent distress, lying in bed. CARDIOVASCULAR: Regular rate and rhythm. LUNGS: Clear to auscultation bilaterally. ABDOMEN: Good bowel sounds. Soft, nontender. EXTREMITIES: No clubbing, cyanosis. NEUROLOGIC: She is moving her extremities. ASSESSMENT/PLAN: 1. Acute respiratory failure. We will continue to wean with ventilator per Pulmonary and hopefully be extubated today. 2. Anemia. Continue to monitor. 3. Chronic kidney disease, stage 3. Continue to monitor. 4. Left hip repair. Continue with postoperative care. 5. Hypothyroidism. Continue with her medication. 6. Diastolic heart failure. Continue with current care per Dr. Rizzo. Please see hospital chart for full details. MD GUTIERREZ Valentin/JEREMIAH /[id number]
[2019-06-03 05:38] LABS: ALBUMIN 2.3 g/dL (3.5-5.0); ANION GAP 13.9 mmol/L (8-16); CALCIUM 7.6 mg/dL (8.4-10.2); CREATININE, SERUM 1.57 mg/dL (0.57-1.11); POTASSIUM 3.9 mmol/L (3.5-5.1)
[2019-06-03] MEDS: THYROID 60 MG TAB PO SCH (05:51)
[2019-06-03] MEDS: INSULIN REGULAR, HUMAN 100 UNIT/1 ML 3ML VIAL SQ SCH ×4 (05:52→18:00)
[2019-06-03] MEDS: CELECOXIB 200 MG CAP PO SCH (08:57)
[2019-06-03] MEDS: FUROSEMIDE INJ 10 MG/ML 4 ML VIAL IV SCH (08:57)
[2019-06-03] MEDS: SPIRONOLACTONE 25 MG TAB PO SCH (08:57)
[2019-06-03] MEDS: VANCOMYCIN 1GM/NS 250 ML 250 ML IV SCH ×2 (08:57→20:00)
[2019-06-03] MEDS: ASPIRIN 325 MG TAB PO SCH (08:57)
[2019-06-03] MEDS: LEVOFLOXACIN 500MG/D5W 100ML 100 ML IV SCH (10:28)
[2019-06-03] MEDS: DEXTROSE 5% 1,000 ML IV SCH (11:15)
[2019-06-03] MEDS ORDERED: EPINEPHRINE HCL SYRINGE IV ONE (11:43)
[2019-06-03] MEDS ORDERED: ATROPINE SULFATE 0.1 MG/ML 10ML SYR IV ONE (11:43)
--- NOTE | 2019-06-03 12:13 | NUR ---
Nutrition Intervention Note RD Recommendation(s) for Physician: - TF rec's: Vital AF at 10 ml/hr, advance as tolerated to goal rate of 45 ml/hr (to provide 1296 kcal and 81 gm protein) - Water flushes and fluid management per MD Plan of Care: RD following, monitoring for tolerance and adequacy Nutrition reason for involvement: MD Consult- TF rec's, Follow up RD Assessment 06/03: Pt seen today per consult for TF rec's. Pt with cardiac arrest s/p procedure on 06/01 requiring reintubation and subsequent extubation yesterday. Dr. Freeman consulted RD during rounds to initiate TF today, order given for RD to order TF. Recommend Vital AF to best meet estimated needs. Plan for [employer] evaluation as well. NGT in place, pt awake and alert on O2 per nasal canula, and RT at bedside. Will continue to monitor. (05/31/2019) Chart reviewed. Labs and meds reviewed. Initial encounter with patient. Pt with a fall last night with hip fx. Pt with a good PO intake, Pt denies any nausea or vomiting. Pt denies any difficulty chewing or swallowing. Pt is a resident of an assisted living facility. Discussed low sodium diet with Pt and family. Current Diet: Cardiac diet Primary Diagnose(s): New onset heart failure PMH: HTN, repeat UTI, Hypothyroid, Cholecystectomy, obesity, dementia, thyroidectomy Ht:63 in Wt:185.70lb BMI:32.9 kg/m2 IBW:115lb +/-10% GI: LBM 05/30 per FS Skin: intact Labs: 06/03: Na 137, K 3.9, BUN 38, Cr 1.57, Gluc 91 Meds: abx, aldactone, asparin, lasix, thyroid, insulin, colace, zofran, phenergan, norco IVF: D5W at 50 ml/hr Nutrition Prescription (Diet Order): NPO, plan to initiate TF Estimated Nutritional Needs: 8974-7118 calories/day (22-25 kcal/kg IBW) 78-105 g protein/day (1.5-2 g pro/kg IBW) Diet Adequacy: Not meeting calorie needs, Not meeting protein needs Diet Tolerance: TF tolerance pending Malnutrition Evaluation (05/31/2019) The patient does not meet criteria for a specified degree of malnutrition at this time. Will re-evaluate at follow-up as appropriate. Diet Education Needs Assessment: Diet education not indicated. Goal: Patient will meet 75-100% of estimated needs by follow up Progress: N/A Interventions: -[employer]/MD- modified diet, C Composition, Rate, Route, Prescription medications Recommended Modifications, SCollaboration with other providers Monitoring/Evaluation: -Total energy intake, Total protein intake, Formula/Solution, Prescription medication, Modified diet Nutrition Care Level: Mod Signed: Yvonne Dunn RD, LD, [facility]
[2019-06-03 12:27] LABS: ABG HCO3 30 mmol/L (23-28); ABG PCO2 45 mmHg (41-51); ABG PH 7.43 (7.31-7.41); ABG PO2 203 mmHg (80-105)
[2019-06-03] MEDS ORDERED: FUROSEMIDE INJ 10 MG/ML 4 ML VIAL IV ONE (12:40)
--- NOTE | 2019-06-03 13:28 | NUR ---
ST NOTE; BSE acknowledged. Pt extubated at 11:30 AM today. RN reporting low vocal volume. Recommend waiting 24 hours prior to completing BSE. Speech to return 06/04/19 for evaluation. Handoff to YOSEPH Peguero
[2019-06-03] MEDS: ENOXAPARIN SOD INJ 40 MG/0.4 ML SYR SC SCH (17:00)
--- NOTE | 2019-06-03 18:45 | NUR ---
Report received. Assumed care. Assessment done. See intervention. IV D5W @ 50ml/hr. O2 per NC 2 2L. NGt with Vital 1.2 tube feeding @ 10ml/hr.
--- NOTE | 2019-06-03 19:00 | NUR ---
Bedside report received from Vanessa Holm RN. Pt received sitting up in bed, reports no pain or discomfort at this time. Care plan reviewed, no family present. Pt on 4L n/c with SPO2 95% and pt is refusing Bipap at this time. Addendum: 06/04/19 at 0416 by Teresa Isaac RN Disregard not, incorrect pt.
--- NOTE | 2019-06-03 20:16 | NUR ---
NGT pulled out by pt. Spoke with Dr. Melo. He advised not to reinsert.
[2019-06-03] MEDS: KETOROLAC TROMETHAMINE 30 MG/ML VIAL IV PRN (21:04)
--- NOTE | 2019-06-03 21:05 | NUR ---
Medicated for c/o pain to left hip.
[2019-06-04] VITALS (26 sets, daily range): BP systolic 96–131; BP diastolic 46–98
[2019-06-04 04:28] LABS: BASOPHILS % 0.1 % (0.0-1.0); EOSINOPHILS # (AUTO) 0.2 (0.0-0.4); EOSINOPHILS % 1.8 % (0.0-6.0); HEMATOCRIT 27.8 % (34.2-44.1); HEMOGLOBIN 8.7 g/dL (12.0-16.0); LYMPHOCYTES # (AUTO) 0.7 (1.0-3.2); LYMPHOCYTES % 7.8 % (18.0-39.1); MEAN CORPUSCULAR HEMOGLOBIN 28.4 pg (28-32); MEAN CORPUSCULAR HGB CONC 31.3 g/dL (31-35); MEAN CORPUSCULAR VOLUME 90.8 fL (81-99); MONOCYTES # (AUTO) 0.8 (0.2-0.8); NEUTROPHILS # (AUTO) 6.7 (2.1-6.9); NEUTROPHILS % 79.9 % (38.7-80.0); PLATELET COUNT 119 x10e3/uL (140-360); RED BLOOD COUNT 3.06 x10e6/uL (3.6-5.1)
[2019-06-04 04:39] LABS: INR 1.03
[2019-06-04 04:52] LABS: ALBUMIN 2.4 g/dL (3.5-5.0); ANION GAP 12.7 mmol/L (8-16); CALCIUM 7.9 mg/dL (8.4-10.2); CREATININE, SERUM 1.54 mg/dL (0.57-1.11); POTASSIUM 3.7 mmol/L (3.5-5.1)
[2019-06-04] MEDS: INSULIN REGULAR, HUMAN 100 UNIT/1 ML 3ML VIAL SQ SCH ×4 (05:40→18:00)
[2019-06-04] MEDS: THYROID 60 MG TAB PO SCH (05:40)
[2019-06-04] MEDS: DEXTROSE 5% 1,000 ML IV SCH (05:50)
[2019-06-04] MEDS: FUROSEMIDE INJ 10 MG/ML 4 ML VIAL IV SCH (08:13)
[2019-06-04] MEDS: VANCOMYCIN 1GM/NS 250 ML 250 ML IV SCH ×2 (08:13→20:00)
--- NOTE | 2019-06-04 08:41 | Diagnostic Imaging Report ---
Chest, 1 view, 06/04/2019. History: The patient. Comparison: 06/02/2019. Findings: ET tube is no longer present. Right IJ central line is unchanged in position. The cardiomediastinal silhouette and pulmonary vasculature are prominent with persistent diffuse bilateral pleural opacities which obscure both hemidiaphragms. There are no acute osseous or soft tissue abnormalities. Impression: Persistent CHF with basilar atelectasis and effusions, left greater than right. Signed by: Ryan Aponte on 06/04/2019 8:40 AM
--- NOTE | 2019-06-04 10:37 | NUR ---
Spoke to pt's sons Aubrey and Jesus regarding POC. They state they are on board with pt going to rehab on discharge. There is order in place for SNF eval. CM provided them with a list of in network facilities. They stated they are familiar with [facility], since their dad was there previously. But family will look at some of the other facilities and call CM once choice is made. CM business card given to Aubrey.
[2019-06-04] MEDS: LEVOFLOXACIN 500MG/D5W 100ML 100 ML IV SCH (11:39)
--- NOTE | 2019-06-04 14:47 | Diagnostic Imaging Report ---
Modified barium swallow, 06/04/2019. History: Dysphagia. Fluoro time: 1.6 min. Dose: 7.1 mGy (MARISA) Discussion: Fluoroscopy was performed by fire technician. A radiologist was not present for exam. Fluoroscopic observation and imaging of the oral cavity, oropharynx, and hypopharynx was performed in the lateral projection during swallowing of liquids and solids, administered by speech pathology. See speech pathologist report for findings. Signed by: Ryan Aponte on 06/04/2019 2:45 PM
[2019-06-04] MEDS: ENOXAPARIN SOD INJ 40 MG/0.4 ML SYR SC SCH (17:11)
--- NOTE | 2019-06-04 18:45 | NUR ---
Report received. Assumed care. Assessent done. See interventions.
--- NOTE | 2019-06-04 21:09 | NUR ---
Called Dr. Melo Vanc trough 32.0. Ordered not to give tonights dose.
[2019-06-04] MEDS ORDERED: POTASSIUM CHLORIDE 20MEQ/100ML 200 ML IV ONE (21:45)
--- NOTE | 2019-06-04 21:45 | NUR ---
Dr. Leo here. Orders given. KCL 40 mEq started.
[2019-06-04] MEDS ORDERED: POTASSIUM CHLORIDE 20MEQ/100ML 200 ML ONE (21:53)
--- NOTE | 2019-06-04 22:19 | NUR ---
Pulmonary Critical Care Medicine DATE 06/04/2019 SUBJECTIVE : better memory today d5w at 50/hr ivf failed MBS/BSE, NPO now high assist to stand CXR fluid overload appearance moderate, minimally better REVIEW OF SYSTEMS: no double vision, no headaches OBJECTIVE: VITAL SIGNS: Vital signs reviewed per EMR HEENT: Normocephalic, atraumatic. GENERAL: Generally in bed, calm, talking NECK: Supple. Throat midline. LUNGS: Bilateral air entry, decreased breath sounds, few rhonchi. ABDOMEN: Soft, nontender. CARDIOVASCULAR: S1, S2. systolic flow murmur EXTREMITIES: No clubbing, no cyanosis. 2+ edema INTEGUMENT: No rash. No purpura. LABORATORY DATA: per EMR cr 1.54, k 3.7. wbc 8.41, hct 27 IMPRESSION AND PLAN: 1. Acute respiratory failure, intubated/extubated 2. Status post cardiac arrest, possibly related to her aortic stenosis 3. Hip fracture s/p operative repair. 4. CHF, diastolic/aortic stenosis. 5. Possible pneumonia. 6. Shock distributive/cardiogenic, resolved 7. Dementia. 8. fluid overload, pleural effusion 9. Hypertension, hypothyroid, history of ovarian cancer and chemotherapy finished in September 2013, degenerative joint disease, former long-term smoker. IVF 50/hr D5W NPO, NMES/ST follow up. Consider MBS soon Diurese as BP tolerates Fix k serial CXR Followup blood sugars. Thank you Dr Melo.
[2019-06-04] MEDS ORDERED: TRAMADOL HCL 50 MG TAB PO PRN (22:30)
[2019-06-05] VITALS (21 sets, daily range): BP systolic 85–118; BP diastolic 48–108
[2019-06-05 05:19] LABS: BASOPHILS % 0.2 % (0.0-1.0); EOSINOPHILS # (AUTO) 0.2 (0.0-0.4); EOSINOPHILS % 3.4 % (0.0-6.0); HEMATOCRIT 27.5 % (34.2-44.1); HEMOGLOBIN 8.6 g/dL (12.0-16.0); LYMPHOCYTES # (AUTO) 0.6 (1.0-3.2); LYMPHOCYTES % 9.5 % (18.0-39.1); MEAN CORPUSCULAR HEMOGLOBIN 28.9 pg (28-32); MEAN CORPUSCULAR HGB CONC 31.3 g/dL (31-35); MEAN CORPUSCULAR VOLUME 92.3 fL (81-99); MONOCYTES # (AUTO) 0.7 (0.2-0.8); MONOCYTES % 10.2 % (4.4-11.3); NEUTROPHILS # (AUTO) 4.9 (2.1-6.9); NEUTROPHILS % 76.2 % (38.7-80.0); PLATELET COUNT 130 x10e3/uL (140-360); RED BLOOD COUNT 2.98 x10e6/uL (3.6-5.1); RED CELL DISTRIBUTION WIDTH 15.2 % (11.7-14.4)
[2019-06-05] MEDS: DEXTROSE 5% 1,000 ML IV SCH ×2 (05:39→21:42)
[2019-06-05 05:45] LABS: ANION GAP 14.5 mmol/L (8-16); CREATININE, SERUM 1.45 mg/dL (0.57-1.11); MAGNESIUM 1.8 MG/DL (1.3-2.1); POTASSIUM 4.5 mmol/L (3.5-5.1)
[2019-06-05] MEDS: INSULIN REGULAR, HUMAN 100 UNIT/1 ML 3ML VIAL SQ SCH ×4 (06:00→18:00)
[2019-06-05] MEDS: THYROID 60 MG TAB PO SCH (06:00)
--- NOTE | 2019-06-05 06:23 | Progress Note ---
DATE: 06/05/2019 SUBJECTIVE: The patient did well overnight, no new complaints. Still confused, which is her baseline. OBJECTIVE: VITAL SIGNS: Temperature 97.6, pulse 99, blood pressure 107/64, and sats 100%. GENERAL: In no apparent distress, lying in bed, confused. CARDIOVASCULAR: Regular rhythm. LUNGS: Clear to auscultation bilaterally. ABDOMEN: Good bowel sounds. Soft and nontender. EXTREMITIES: No clubbing or cyanosis. NEUROLOGIC: Moves all extremities x4. ASSESSMENT AND PLAN: 1. Status post left hip repair. Continue with postoperative care. 2. Congestive heart failure. Continue with current care. 3. Diabetes. Continue to monitor. 4. Chronic kidney disease, stage 3. Continue to monitor. 5. Anemia. Continue to monitor. Check laboratory data. 6. Hypothyroidism. Continue with thyroid medicine. 7. Obesity. Continue with diet control. 8. Acute respiratory failure with hypoxia. Continue with O2 and wean as tolerated per Pulmonary. Please see hospital chart for full details. MD GUTIERREZ Valentin/MODL /[id number]
[2019-06-05] MEDS: FUROSEMIDE INJ 10 MG/ML 4 ML VIAL IV SCH (08:03)
[2019-06-05] MEDS: KETOROLAC TROMETHAMINE 30 MG/ML VIAL IV PRN ×2 (08:23→21:41)
--- NOTE | 2019-06-05 09:00 | Diagnostic Imaging Report ---
Chest, 1 view, 06/05/2019. History: Shortness of breath. Comparison: 06/04/2019. Findings: The cardiomediastinal silhouette and pulmonary vasculature are prominent with diffuse bilateral pulmonary opacities which obscure the left heart border and both hemidiaphragm. Right IJ central line is unchanged in position. Are no acute osseous or soft tissue abnormalities. Impression: CHF with bibasilar atelectasis and effusions. Slight improved aeration at the right lung base. Signed by: Ryan Aponte on 06/05/2019 8:59 AM
[2019-06-05] MEDS: LEVOFLOXACIN 500MG/D5W 100ML 100 ML IV SCH (10:04)
--- NOTE | 2019-06-05 11:42 | NUR ---
Pulmonary Critical Care Medicine DATE 06/05/2019 SUBJECTIVE : better memory SHE CAn be redirected to aox 4, but still memory issues 94% sat dizzy on sitting, needs assist to sit ivf 50/hr cxr slow decrease in pleural effusion REVIEW OF SYSTEMS: no double vision, no headaches OBJECTIVE: VITAL SIGNS: Vital signs reviewed per EMR HEENT: Normocephalic, atraumatic. GENERAL: Generally in bed, calm, talking NECK: Supple. Throat midline. LUNGS: Bilateral air entry, decreased breath sounds, few rhonchi. ABDOMEN: Soft, nontender. CARDIOVASCULAR: S1, S2. systolic flow murmur EXTREMITIES: No clubbing, no cyanosis. 2+ edema INTEGUMENT: No rash. No purpura. LABORATORY DATA: 4.5 k , cr 1.45, wbc 6.4, hct 28, plt 130 IMPRESSION AND PLAN: 1. Acute respiratory failure, intubated/extubated 2. Status post cardiac arrest, possibly related to her aortic stenosis 3. Hip fracture s/p operative repair. 4. CHF, diastolic/aortic stenosis. 5. Possible pneumonia. 6. Shock distributive/cardiogenic, resolved 7. Dementia. 8. fluid overload, pleural effusion 9. Hypertension, hypothyroid, history of ovarian cancer and chemotherapy finished in September 2013, degenerative joint disease, former long-term smoker. IVF 50/hr D5W NPO, NMES/ST follow up. --Consider repeat MBS soon Diurese as BP tolerates serial CXR --no thoracentesis yet Followup blood sugars. Thank you Dr Melo.
[2019-06-05] MEDS: ENOXAPARIN SOD INJ 40 MG/0.4 ML SYR SC SCH (16:04)
[2019-06-06] VITALS (10 sets, daily range): BP systolic 89–141; BP diastolic 53–88
[2019-06-06] MEDS: THYROID 60 MG TAB PO SCH (06:00)
[2019-06-06] MEDS: INSULIN REGULAR, HUMAN 100 UNIT/1 ML 3ML VIAL SQ SCH ×2 (06:00)
[2019-06-06] MEDS: FUROSEMIDE INJ 10 MG/ML 4 ML VIAL IV SCH (08:00)
--- NOTE | 2019-06-06 09:29 | Progress Note ---
DATE: 06/06/2019 SUBJECTIVE: An 88-year-old female who comes in status post left hip repair. The patient is postoperative and also status post acute respiratory failure, status post extubation. Currently sleeping. Has no complaints. Comfortable. No chest pain. Family at this time does not want reintroduction of an NG tube. OBJECTIVE: VITAL SIGNS: Temperature is 97.4, pulse of 83, respirations of 24, blood pressure is 127/84, and pulse oximetry 100% on 2 L on room air. HEENT: Normocephalic. The patient is sleeping. Good dentition. CVS: S1 and S2. Regular. ABDOMEN: Nontender and nondistended. EXTREMITIES: Positive for edema. LABORATORY DATA: Hematology from yesterday hemoglobin of 8.6, hematocrit of 27.5, and platelet count is 130. Chemistries from yesterday glucoses have been running very good. Coags are normal. Toxicology from vancomycin was 32. MEDICATIONS: 1. She is on Toradol 30 mg q.6. 2. DVT prophylaxis with Lovenox. 3. Levaquin q. 24 hours. 4. Lasix 40 mg daily. 5. Insulin protocol. 6. She is on thyroid agent. 7. Zofran as needed. 8. Diphenhydramine as needed. MICROBIOLOGY: Gram stain sputum culture in process. Rare gram-positive in pairs. ASSESSMENT AND PLAN: 1. Ms. Alize Cruz is an 88-year-old female status post fall with left hip fracture and left hip repair. 2. Acute respiratory failure, weaned off, doing better. Continue on oxygen therapy. 3. Anemia. Continue to monitor postoperative. 4. Hypothyroidism. Continue to monitor the patient. 5. Diastolic heart failure. Monitor in's and out's and continue monitoring fluid status. For further information, look into the chart. The patient has been seen by other consultants including Dr. Leo, Dr. Hamlin, and Dr. Rizzo. MD LEVI Cantu/MODL /[id number]
[2019-06-06] MEDS: LEVOFLOXACIN 500MG/D5W 100ML 100 ML IV SCH (10:11)
--- NOTE | 2019-06-06 11:00 | NUR ---
pt participating with pt as tolerated. vss. son at bedside.
--- NOTE | 2019-06-06 13:20 | NUR ---
Pulmonary Critical Care Medicine DATE 06/06/2019 SUBJECTIVE : D5W IVF at 50/hr Room air fio2 100% saturation roly CXR with decreased pleural effusion REVIEW OF SYSTEMS: no double vision, no headaches OBJECTIVE: VITAL SIGNS: Vital signs reviewed per EMR HEENT: Normocephalic, atraumatic. GENERAL: Generally in bed, calm, talking NECK: Supple. Throat midline. LUNGS: Bilateral air entry, decreased breath sounds, few rhonchi. ABDOMEN: Soft, nontender. CARDIOVASCULAR: S1, S2. systolic flow murmur EXTREMITIES: No clubbing, no cyanosis. 2+ edema INTEGUMENT: No rash. No purpura. LABORATORY DATA: no new updates IMPRESSION AND PLAN: 1. Acute respiratory failure, intubated/extubated 2. Status post cardiac arrest, possibly related to her aortic stenosis 3. Hip fracture s/p operative repair. 4. CHF, diastolic/aortic stenosis. 5. Possible pneumonia. 6. Shock distributive/cardiogenic, resolved 7. Dementia. 8. fluid overload, pleural effusion 9. Hypertension, hypothyroid, history of ovarian cancer and chemotherapy finished in September 2013, degenerative joint disease, former long-term smoker. IVF 50/hr D5W NPO, NMES/ST follow up. --Consider repeat MBS soon Diurese as BP tolerates --more serial CXR --no thoracentesis yet Followup blood sugars. d/c roly Thank you Dr Melo.
[2019-06-06] MEDS: ENOXAPARIN SOD INJ 40 MG/0.4 ML SYR SC SCH (16:06)
[2019-06-06] MEDS: DEXTROSE 5% 1,000 ML IV SCH (16:06)
[2019-06-06] MEDS: KETOROLAC TROMETHAMINE 30 MG/ML VIAL IV PRN (16:39)
[2019-06-07] VITALS (9 sets, daily range): BP systolic 104–142; BP diastolic 59–99
[2019-06-07 05:15] LABS: BASOPHILS % 0.3 % (0.0-1.0); EOSINOPHILS # (AUTO) 0.1 (0.0-0.4); EOSINOPHILS % 1.1 % (0.0-6.0); HEMATOCRIT 31.1 % (34.2-44.1); HEMOGLOBIN 9.6 g/dL (12.0-16.0); LYMPHOCYTES # (AUTO) 0.8 (1.0-3.2); LYMPHOCYTES % 7.7 % (18.0-39.1); MEAN CORPUSCULAR HEMOGLOBIN 28.2 pg (28-32); MEAN CORPUSCULAR HGB CONC 30.9 g/dL (31-35); MEAN CORPUSCULAR VOLUME 91.2 fL (81-99); MONOCYTES # (AUTO) 1.1 (0.2-0.8); MONOCYTES % 10.3 % (4.4-11.3); NEUTROPHILS # (AUTO) 8.3 (2.1-6.9); NEUTROPHILS % 78.8 % (38.7-80.0); PLATELET COUNT 201 x10e3/uL (140-360); RED BLOOD COUNT 3.41 x10e6/uL (3.6-5.1)
[2019-06-07 05:41] LABS: ANION GAP 18.7 mmol/L (8-16); CALCIUM 8.5 mg/dL (8.4-10.2); CREATININE, SERUM 1.51 mg/dL (0.57-1.11); POTASSIUM 3.7 mmol/L (3.5-5.1)
[2019-06-07] MEDS: THYROID 60 MG TAB PO SCH (06:00)
--- NOTE | 2019-06-07 08:00 | NUR ---
dr yoselin allen, updated on pt status. she has been very anxious and unable to rest. medicated as noted w/ no change. bed alarm on continuous monitoring
[2019-06-07] MEDS: LORAZEPAM INJ 2 MG/ML VIAL IV PRN ×2 (08:14→20:45)
[2019-06-07] MEDS: FUROSEMIDE INJ 10 MG/ML 4 ML VIAL IV SCH (08:15)
[2019-06-07] MEDS: KETOROLAC TROMETHAMINE 30 MG/ML VIAL IV PRN (08:55)
--- NOTE | 2019-06-07 09:30 | NUR ---
pt condition unchanged. son at bedside updated on status and care.
[2019-06-07] MEDS: LEVOFLOXACIN 500MG/D5W 100ML 100 ML IV SCH (10:16)
--- NOTE | 2019-06-07 10:33 | Progress Note ---
DATE: 06/07/2019 SUBJECTIVE: Ms. Cruz had a bad night last night according to the nursing staff, was very confused, was trying to get out of bed, was swinging her legs to the left side. No chest pain, but in and out of confusion and swallow evaluation to be done tomorrow. The patient is currently n.p.o. OBJECTIVE: VITAL SIGNS: Temperature is 96.5, pulse of 87, respirations of 20, blood pressure is 115/66, and pulse oximetry of 94%. HEENT: Normocephalic and atraumatic. The patient is confused. CVS: S1 and S2 normal. Regular rate and rhythm. ABDOMEN: Nontender and nondistended. EXTREMITIES: Positive for edema, positive for hematoma of the left lower extremity. MEDICATIONS: Noted. MICROBIOLOGY: Gram stain and sputum. ASSESSMENT AND PLAN: An 88-year-old female with: 1. Left hip fracture and left hip open reduction internal fixation. 2. Acute respiratory failure. Continue watching. 3. Anemia. Continue to monitor. 4. Hypothyroidism. Continue to monitor thyroid as needed. 5. Diastolic heart failure seen by Cardiology. 6. Confusion. Will hold back on anxiolytics at this time. We will continue to monitor the patient further recommendation and clinical course. 7. Encephalopathy, possibly metabolic. We will continue monitoring her labs. MD LEVI Cantu/KUMARL /[id number]
[2019-06-07] MEDS: DEXTROSE 5% 1,000 ML IV SCH (11:17)
--- NOTE | 2019-06-07 16:00 | NUR ---
pt transferred via bed after calling report to room 101 with family at bedside. sons and daughter verbalize understanding pt will have family at bedside at all times due to pt forgetfulness and risk for fall.
--- NOTE | 2019-06-07 16:20 | NUR ---
Received patient from ICU, a/ox2, pleasantly confused, family at bedside, s/p left hip repair, extubated and now on room air, no resp distress, in bed,call light within reach, bed alarms in place, IV line patent. VSS and will monitor.
[2019-06-07] MEDS: ENOXAPARIN SOD INJ 40 MG/0.4 ML SYR SC SCH (17:38)
--- NOTE | 2019-06-07 17:39 | NUR ---
Pulmonary Critical Care Medicine DATE 06/07/2019 SUBJECTIVE : D5W IVF at 50/hr 1 L/min oxygen fio2 dunham out, voiding some confusion REVIEW OF SYSTEMS: no double vision, no headaches OBJECTIVE: VITAL SIGNS: Vital signs reviewed per EMR HEENT: Normocephalic, atraumatic. GENERAL: Generally in bed, calm, talking NECK: Supple. Throat midline. LUNGS: Bilateral air entry, decreased breath sounds, few rhonchi. ABDOMEN: Soft, nontender. CARDIOVASCULAR: S1, S2. systolic flow murmur EXTREMITIES: No clubbing, no cyanosis. 2+ edema INTEGUMENT: No rash. No purpura. LABORATORY DATA: no new updates IMPRESSION AND PLAN: 1. Acute respiratory failure, intubated/extubated 2. Status post cardiac arrest, possibly related to her aortic stenosis 3. Hip fracture s/p operative repair. 4. CHF, diastolic/aortic stenosis. 5. Possible pneumonia. 6. Shock distributive/cardiogenic, resolved 7. Dementia. 8. fluid overload, pleural effusion 9. Hypertension, hypothyroid, history of ovarian cancer and chemotherapy finished in September 2013, degenerative joint disease, former long-term smoker. IVF 50/hr D5W NPO, NMES/ST follow up. --Consider repeat MBS soon Diurese as BP tolerates --more serial CXR --no thoracentesis yet Follow up blood sugars. Ok to leave ICU Thank you Dr Melo.
[2019-06-07] MEDS ORDERED: POTASSIUM CHLORIDE 20MEQ/100ML 100 ML IV ONE (17:45)
--- NOTE | 2019-06-07 18:09 | NUR ---
Patient confused, screaming looking for daughter, they left and son will be coming tonight to spend the night with patient, bed alarms in place, intensified frequent checks for safety, call light within reach and repositioned for comfort, will monitor.
--- NOTE | 2019-06-07 20:15 | NUR ---
PATIENT IS IN STABLE CONDITION, NO SIGNS OF RESPIRATORY DISTRESS NOTED. FAMILY MEMBER IS AT BEDSIDE AND PATIENT IS VERY CONFUSED. IV FLUIDS ARE RUNNING AT ORDERED RATE AND PATIENT WAS TURNED INTO POSITION FOR COMFORT WITH HELP OF TECH. BED IS IN LOWEST POSITION POSSIBLE, SIDE RAILS ARE UP, BED ALARM IS ON, CALL LIGHT IS WITHIN REACH, WILL CONTINUE TO MONITOR.
[2019-06-08] VITALS (9 sets, daily range): BP systolic 99–147; BP diastolic 54–70
--- NOTE | 2019-06-08 00:30 | NUR ---
PATIENT RESTING IN BED, NO SIGNS OF DISTRESS NOTED. FAMILY MEMBER AT BEDSIDE PLAYING RELAXATION MUSIC FOR PATIENT. PATIENT HAS BEEN CHANGED AND CLEANED, WELL REPOSITIONED FOR COMFORT. WILL CONTINUE TO MONITOR.
[2019-06-08] MEDS: LORAZEPAM INJ 2 MG/ML VIAL IV PRN ×2 (02:49→17:11)
[2019-06-08] MEDS: THYROID 60 MG TAB PO SCH (04:25)
[2019-06-08 05:45] LABS: BASOPHILS % 0.3 % (0.0-1.0); EOSINOPHILS # (AUTO) 0.2 (0.0-0.4); EOSINOPHILS % 1.3 % (0.0-6.0); HEMATOCRIT 26.3 % (34.2-44.1); HEMOGLOBIN 8.3 g/dL (12.0-16.0); LYMPHOCYTES # (AUTO) 0.5 (1.0-3.2); LYMPHOCYTES % 4.3 % (18.0-39.1); MEAN CORPUSCULAR HEMOGLOBIN 28.3 pg (28-32); MEAN CORPUSCULAR HGB CONC 31.6 g/dL (31-35); MEAN CORPUSCULAR VOLUME 89.8 fL (81-99); MONOCYTES % 8.7 % (4.4-11.3); NEUTROPHILS # (AUTO) 10.1 (2.1-6.9); NEUTROPHILS % 84.6 % (38.7-80.0); PLATELET COUNT 198 x10e3/uL (140-360); RED BLOOD COUNT 2.93 x10e6/uL (3.6-5.1); RED CELL DISTRIBUTION WIDTH 15.3 % (11.7-14.4)
[2019-06-08 06:08] LABS: CALCIUM 8.2 mg/dL (8.4-10.2); CREATININE, SERUM 1.33 mg/dL (0.57-1.11)
--- NOTE | 2019-06-08 07:13 | NUR ---
Received patient and a/ox3, pleasant and no resp distress, call light within reach, VSS, son by bedside.
--- NOTE | 2019-06-08 07:14 | NUR ---
PATIENT IN STABLE CONDITION, NO SIGNS OF DISTRESS NOTED, BEDSIDE REPORT GIVEN TO ONCOMING DAY NURSE.
[2019-06-08] MEDS: DEXTROSE 5% 1,000 ML IV SCH (07:59)
--- NOTE | 2019-06-08 08:03 | NUR ---
Contacted Dr. Melo regarding repeat of swallow exam today.
--- NOTE | 2019-06-08 09:11 | NUR ---
Orders from Dr. Melo of repeat MBS today, speech notified.
[2019-06-08] MEDS: FUROSEMIDE INJ 10 MG/ML 4 ML VIAL IV SCH (09:18)
--- NOTE | 2019-06-08 09:27 | NUR ---
SPOKE WITH PT SON ABOUT TAKING OVER FOR THE SNF REFERRAL, SWALLOW TEST IS TODAY, HE IS LOOKING AT 2 BUILDINGS [facility] AND [facility], HE WILL SPEAK WITH HIS BROTHER AND THEY WILL MAKE CHOICE TODAY AND LET ME KNOW WHERE TO START THE PROCESS. GAVE CARD AND LET KNOW TO CONTACT ME WITH ANY QUESTIONS.
[2019-06-08] MEDS: LEVOFLOXACIN 500MG/D5W 100ML 100 ML IV SCH (11:00)
--- NOTE | 2019-06-08 12:41 | NUR ---
Orders from Dr. Melo for Palliative Care.
--- NOTE | 2019-06-08 13:22 | NUR ---
order for CM: palliative care entered - wrote MD consult for palliative care
--- NOTE | 2019-06-08 14:48 | NUR ---
Patient returned from having MBS and Speech therapist states patient is still aspirating on every consistency and less on Puree and [place] thick liquid and only after pocketing. They are recommending NPO and speech discussed options with son at bedside.
--- NOTE | 2019-06-08 16:27 | NUR ---
Nutrition Intervention Note RD Recommendation(s) for Physician: - Diet per MD/HR INTERNSHIP - If aggressive care is desired, recommend replacing feeding tube and initiating TF. - TF rec's: Vital AF at 10 ml/hr, advance as tolerated to goal rate of 45 ml/hr (to provide 1296 kcal and 81 gm protein) - Water flushes and fluid management per MD Plan of Care: RD following, monitoring for tolerance and adequacy Nutrition reason for involvement: Follow up RD Assessment 06/08: Follow up. Pt very confused, pulled out NGT and TF held. Pt discussed during am rounds, possible MBS today. Noted pallaitive care consult per chart review in afternoon. Consult nutrition if aggressive care is desired. Will continue to monitor. 06/03: Pt seen today per consult for TF rec's. Pt with cardiac arrest s/p procedure on 06/01 requiring reintubation and subsequent extubation yesterday. Dr. Freeman consulted RD during rounds to initiate TF today, order given for RD to order TF. Recommend Vital AF to best meet estimated needs. Plan for HR INTERNSHIP evaluation as well. NGT in place, pt awake and alert on O2 per nasal canula, and RT at bedside. Will continue to monitor. (05/31/2019) Chart reviewed. Labs and meds reviewed. Initial encounter with patient. Pt with a fall last night with hip fx. Pt with a good PO intake, Pt denies any nausea or vomiting. Pt denies any difficulty chewing or swallowing. Pt is a resident of an assisted living facility. Discussed low sodium diet with Pt and family. Current Diet: Cardiac diet Primary Diagnose(s): New onset heart failure PMH: HTN, repeat UTI, Hypothyroid, Cholecystectomy, obesity, dementia, thyroidectomy Ht:63 in Wt:185.70lb BMI:32.9 kg/m2 IBW:115lb +/-10% GI: LBM 06/03 per FS Skin: intact Labs: 06/03: Na 136, K 4, BUN 33, Cr 1.33, Gluc 92 Meds: abx, lasix, norco, thyroid, zofran, colace, phenergan IVF: D5W at 50 ml/hr Nutrition Prescription (Diet Order): TF held, pt pulled NGT Estimated Nutritional Needs: 2801-8807 calories/day (22-25 kcal/kg IBW) 78-105 g protein/day (1.5-2 g pro/kg IBW) Diet Adequacy: Not meeting calorie needs, Not meeting protein needs Diet Tolerance: TF tolerance pending, previously tolerating Malnutrition Evaluation (05/31/2019) The patient does not meet criteria for a specified degree of malnutrition at this time. Will re-evaluate at follow-up as appropriate. Diet Education Needs Assessment: Diet education not indicated. Goal: Patient will meet 75-100% of estimated needs by follow up Progress: not progressing Interventions: -HR INTERNSHIP/MD- modified diet, Composition, Rate, Route, Prescription medications Recommended Modifications, Collaboration with other providers Monitoring/Evaluation: -Total energy intake, Total protein intake, Formula/Solution, Prescription medication, Modified diet per HR INTERNSHIP/MD Nutrition Care Level: Mod Signed: Yvonne Dunn RD, LD, [facility]
[2019-06-08] MEDS: ENOXAPARIN SOD INJ 40 MG/0.4 ML SYR SC SCH (17:10)
--- NOTE | 2019-06-08 17:11 | NUR ---
Patient starting with some confusion and disorientation, medicated with Ativan PRN
--- NOTE | 2019-06-08 18:14 | NUR ---
Patient now calm, daughter concerned about Levaquin causing confusion state and wants attending to address when rounding. They also understand the risk of patient eating food but want to go ahead and have patient get the most restrictive diet despite recommendation by speech therapist to be NPO due to aspiration risk. Report will be generated by speech for review.
--- NOTE | 2019-06-08 20:00 | NUR ---
INITIAL ASSESSMENT COMPLETE, PT IN BED, CONFUSED, PLEASANTLY COOPERATIVE, LEFT HIP WITH LARGE BRUISE, KATELYNN COVERED WITH DRESSING,2 + EDEMA TO LOWER EXTREMITIES, TELE ON PT, FOOT PUMPS ON, IJ TO RIGHT NECK INFUSING, CONTINUE TO MONITOR CARE AND TURN PT, NO DISTRESS NOTED, DID VERBALIZE SOME PAIN TO LEFT HIP, BED ALARM ON PT,
[2019-06-08] MEDS: KETOROLAC TROMETHAMINE 30 MG/ML VIAL IV PRN (20:27)
--- NOTE | 2019-06-08 23:30 | NUR ---
PT DIAPER CHANGED, YELLOW URINE NOTED, CREAM APPLIED TO BOTTOM AREA, RE POSITIONED, NO DISTRESS NOTED, VS STABLE.
[2019-06-09] VITALS (9 sets, daily range): BP systolic 102–135; BP diastolic 47–71
[2019-06-09] MEDS: THYROID 60 MG TAB PO SCH (02:13)
[2019-06-09] MEDS: KETOROLAC TROMETHAMINE 30 MG/ML VIAL IV PRN (02:20)
--- NOTE | 2019-06-09 02:52 | NUR ---
Pulmonary Critical Care Medicine DATE 06/08/2019 SUBJECTIVE : mild dyspnea on talking on oxygen by NC awake, ao x 1. ao x 3 on redirecting converses REVIEW OF SYSTEMS: no double vision, no headaches OBJECTIVE: VITAL SIGNS: Vital signs reviewed per EMR HEENT: Normocephalic, atraumatic. GENERAL: Generally in bed, calm, talking NECK: Supple. Throat midline. LUNGS: Bilateral air entry, decreased breath sounds, few rhonchi. ABDOMEN: Soft, nontender. CARDIOVASCULAR: S1, S2. systolic flow murmur EXTREMITIES: No clubbing, no cyanosis. 1+ edema INTEGUMENT: No rash. No purpura. LABORATORY DATA: no new updates IMPRESSION AND PLAN: 1. Acute respiratory failure, intubated/extubated 2. s/p cardiac arrest, possibly related to her aortic stenosis 3. Hip fracture s/p operative repair. 4. CHF, diastolic/aortic stenosis. 5. Possible pneumonia. 6. Shock distributive/cardiogenic, resolved 7. Dementia. 8. fluid overload, pleural effusion 9. Hypertension, hypothyroid, history of ovarian cancer and chemotherapy finished in September 2013, degenerative joint disease, former long-term smoker. repeat CXR tomorrow NPO, NMES/ST follow up. --Consider repeat MBS soon Diurese as BP tolerates -- AM CXR --no thoracentesis yet aggressive PT/OT Thank you Dr Melo.
--- NOTE | 2019-06-09 05:45 | NUR ---
DR OWENS HERE TO SEE PT AND FAMILY, PT ASLEEP, EASILY AROUSED TO WAKE, DROWSY FROM MEDICATIONS, VS WNL, CALL LIGHT IN REACH, FAMILY AT BEDSIDE, NO DISTRESS NOTED.
--- NOTE | 2019-06-09 05:51 | Diagnostic Imaging Report ---
EXAMINATION: CHEST SINGLE (PORTABLE) COMPARISON: Chest x-ray 06/05/2019, modified barium swallow 06/08/2019 INDICATION: CHF ^chf ^[id number] ^[id number] DISCUSSION: Frontal view of the chest obtained at 0520 hours. HEART AND MEDIASTINUM: Stable cardiomegaly and calcifications throughout the aorta LINES: Right IJ catheter terminates in the SVC LUNGS/PLEURA: Bibasilar atelectasis. No interstitial edema. New thin curvilinear density over the right heart border crossing the midline into the upper abdomen. This may represent retained barium in the esophagus. Stable pleural effusions, left larger than right BONES AND SOFT TISSUES: No focal osseous lesion. The soft tissues are normal. IMPRESSION: Stable bilateral pleural effusions and atelectasis. Retained barium in the esophagus. Signed by: Dr. Peewee Hamilton MD on 06/09/2019 5:48 AM
--- NOTE | 2019-06-09 07:05 | NUR ---
RCD PT AT BED PT IS CONFUSED NO SIGNS OF ANY DISTRESS NOTED IV PATENT BY SALINE FLUSH FAMILY AT BED SIDE BED LOW AND LOCKED CALL LIGHT IN REACH
[2019-06-09] MEDS: FUROSEMIDE INJ 10 MG/ML 4 ML VIAL IV SCH (09:00)
--- NOTE | 2019-06-09 10:03 | Diagnostic Imaging Report ---
PROCEDURE: X-RAY MODIFIED BARIUM SWALLOW COMPARISON: None. INDICATION: Aspiration Radiation Details: Fluoroscopy time: 3.3 minutes Cumulative dose: 9.1 mGy DISCUSSION: Fluoroscopic examination was performed in conjunction with speech pathology during swallowing a variety of thin and thick liquid consistencies. Provided images demonstrate laryngeal penetration and aspiration. CONCLUSION: Modified barium swallow demonstrating laryngeal penetration and aspiration. Please refer to the speech pathology report for further details. Signed by: Jarrett Sheppard MD on 06/09/2019 10:01 AM
[2019-06-09] MEDS: DEXTROSE 5% 1,000 ML IV SCH ×2 (10:19→23:45)
--- NOTE | 2019-06-09 11:40 | NUR ---
SPEECH THERAPIST WANTED TO DO NMES AFTER DC THE CENTRAL LINE PAGED AND NOTIFIED DR OWENS GOT THE ORDER TO DC THE CENTRAL LINE
--- NOTE | 2019-06-09 12:00 | NUR ---
AC TO SPEECH THEY ARE DOING NMES ONLY ON TOMORROW SO KEEPING CENTRAL LINE
--- NOTE | 2019-06-09 12:32 | NUR ---
Pulmonary Critical Care Medicine DATE 06/09/2019 SUBJECTIVE : started PO diet ate 1/3 of yannick ivf 50/hr d5w ao x 1, redirectable to ao x 3 still with mild excess dyspnea REVIEW OF SYSTEMS: no double vision, no headaches OBJECTIVE: VITAL SIGNS: Vital signs reviewed per EMR HEENT: Normocephalic, atraumatic. GENERAL: Generally in bed, calm, talking NECK: Supple. Throat midline. LUNGS: Bilateral air entry, decreased breath sounds, few rhonchi. ABDOMEN: Soft, nontender. CARDIOVASCULAR: S1, S2. systolic flow murmur EXTREMITIES: No clubbing, no cyanosis. 1+ edema INTEGUMENT: No rash. No purpura. LABORATORY DATA: cr 1.33 CXR with mod effusions remnant, slow to improve IMPRESSION AND PLAN: 1. Acute respiratory failure, intubated/extubated 2. s/p cardiac arrest, possibly related to her aortic stenosis 3. Hip fracture s/p operative repair. 4. CHF, diastolic/aortic stenosis. 5. Possible pneumonia. 6. Shock distributive/cardiogenic, resolved 7. Dementia. 8. fluid overload, pleural effusion 9. Hypertension, hypothyroid, history of ovarian cancer and chemotherapy finished in September 2013, degenerative joint disease, former long-term smoker. order thoracentesis due to slow progress -hold lovenox started diet, follow up NMES/ST follow up. Diurese as BP tolerates -- intermittent CXR DC CVC aggressive PT/OT Thank you Dr Melo.
--- NOTE | 2019-06-09 15:23 | NUR ---
PT WENT TO PROCEDURE IN SAFE CONDITION
--- NOTE | 2019-06-09 16:12 | NUR ---
PT BACK AFTER PROCEDURE PT IS ALERT AND ORIENTED VITALS CHECKED ,DRAINED 350 ML OF VALENTIN COLOR FLUID ON LEFT SIDE NO SIGNS OF BLEEDING ON THE SITE PT RESTING ON BED BED LOW AND LOCKED CALL LIGHT IN REACH
--- NOTE | 2019-06-09 16:28 | Diagnostic Imaging Report ---
EXAMINATION: CHEST SINGLE (PORTABLE) INDICATION: Postprocedural COMPARISON: Chest radiograph and thoracentesis of earlier the same day. FINDINGS: LINES/TUBES:Right IJ central venous catheter terminates near the superior cavoatrial junction. EKG leads overlie the chest. LUNGS:The lungs are moderately inflated. No focal consolidation or katarina pulmonary edema. PLEURA:Trace left pleural effusion. No pneumothorax status post thoracentesis. No substantial right pleural effusion. MEDIASTINUM:Cardiomediastinal silhouette is stably enlarged. Atherosclerotic calcifications of the thoracic aorta. BONES/SOFT TISSUES:No acute osseous injury. ABDOMEN:No free air under the diaphragm. Residual contrast material in the colon. IMPRESSION: No pneumothorax status post left thoracentesis. Trace residual left pleural effusion. No substantial right pleural effusion. Signed by: Jarrett Sheppard MD on 06/09/2019 4:26 PM
--- NOTE | 2019-06-09 16:30 | Diagnostic Imaging Report ---
PROCEDURE: Ultrasound-guided thoracentesis Procedural Personnel Attending physician(s): Jarrett Sheppard MD Fellow physician(s): None Resident physician(s): None Advanced practice provider(s): None Pre-procedure diagnosis: Pleural effusion Post-procedure diagnosis: Same Indication: Pleural effusion with compromised respiration Additional clinical history: None Complications: No immediate complications. IMPRESSION: Ultrasound-guided thoracentesis with drainage of 350 mL of serous fluid. Plan: Please note, there is only very trace right pleural fluid, which is insufficient for performance of right sided thoracentesis which has been requested for the next day. The procedure will thus be canceled. Post-procedural chest radiograph. Resume care by clinical team. PROCEDURE SUMMARY: - Limited thoracic ultrasound - Ultrasound-guided thoracentesis - Additional procedure(s): None PROCEDURE DETAILS: Pre-procedure Consent: Informed consent for the procedure including risks, benefits and alternatives was obtained and time-out was performed prior to the procedure. Preparation: The site was prepared and draped using maximal sterile barrier technique including cutaneous antisepsis. Anesthesia/sedation Level of anesthesia/sedation: No sedation Anesthesia/sedation administered by: Not applicable Total intra-service sedation time (minutes): N/A Limited thoracic ultrasound Limited thoracic ultrasound was performed using a curved transducer. A safe window for thoracentesis was identified. Left hemithorax findings: Small pleural effusion Right hemithorax findings: Trace effusion, insufficient for thoracentesis. Thoracentesis Local anesthesia was administered. The pleural space was accessed under real-time ultrasound guidance and fluid return confirmed position. The fluid was drained. The catheter was removed, and a sterile bandage was applied. Catheter placed: 5F [place] Post-drainage hemithorax findings: Not performed Additional Details Additional description of procedure: None Equipment details: None Specimens removed: Pleural fluid Estimated blood loss (mL): Less than 10 Standardized report: [id number] Attestation Signer name: Jarrett Sheppard MD I attest that I was present for the entire procedure. I reviewed the stored images and agree with the report as written. Signed by: Jarrett Sheppard MD on 06/09/2019 4:28 PM
--- NOTE | 2019-06-09 19:05 | NUR ---
Received the patient in report.lyeing in the bed.stable condition.iv to right ij is patent.bed alarm on.bed locked and in lowest position.phone and call light within reach.instructed to call for assistance as needed.on honey thickened.pureed diet.
--- NOTE | 2019-06-09 19:17 | NUR ---
PT RESTING ON BED BED SIDE REPORT GIVEN TO ONCOMING NURSE
[2019-06-09] MEDS: LORAZEPAM INJ 2 MG/ML VIAL IV PRN (20:21)
[2019-06-10] VITALS (7 sets, daily range): BP systolic 89–132; BP diastolic 52–62
[2019-06-10] MEDS: KETOROLAC TROMETHAMINE 30 MG/ML VIAL IV PRN ×2 (03:56→08:51)
[2019-06-10 05:58] LABS: ALBUMIN 2.2 g/dL (3.5-5.0); BILIRUBIN,DIRECT 0.8 mg/dL (0.0-0.5)
[2019-06-10] MEDS: THYROID 60 MG TAB PO SCH (06:02)
--- NOTE | 2019-06-10 07:00 | NUR ---
Bed side shift report given to oncoming Rn.stable condition.
--- NOTE | 2019-06-10 08:21 | NUR ---
The pt's son is at the bedside and reports that the pt. gets cortisone injections to the right and asks that the dr. be notified that today is the usual day for this procedure. He was advised that the dr will be made aware.
[2019-06-10] MEDS: FUROSEMIDE 40 MG TAB PO SCH (08:42)
--- NOTE | 2019-06-10 11:18 | NUR ---
The rij was removed and attempt by this verse writer to place p iv unsuccessful times 2. CH will attempt restart.
--- NOTE | 2019-06-10 11:26 | NUR ---
The C N attempt to restart p iv unsuccessful.
--- NOTE | 2019-06-10 15:04 | NUR ---
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 HX CHF, PRESSURE ULCERATION CONCHA 13 PATIENT ON STRICT PUP STATUS AND INTERVENTIONS LABS: WBC- 11.92, HGB - 8.3, GLUCOSE -92 SKIN ASSESSMENT COMPLETE PATIENT PRESENTS WITH LEFT HIP ORIF HEALING INCISION LINE X 2 SACRAL STAGE 2 ULCERATION 1CM X1CM X.1CM RECOMMENDATIONS: NURSING TO CONTINUE TO MAINTAIN MODERATE PUP STATUS AND INTERVENTIONS NURSING TO CONTINUE TO ASSIST PATIENT OUT OF BED FOR MEALS AND MUCH TOLERATED NURSING TO PROTECT ANT COVER LEFT SIDE HEALING INCISION LINES NURSING TO CLEAN SACRAL STAGE 2 ULCERATION WITH NS DAILY AND APPLY VENELEX OINTMENT AND COVER WITH ALLEVYN FOAM DRESSING Addendum: 06/10/19 at 1516 by Kwesi Hayes RN Amended: Links added.
--- NOTE | 2019-06-10 15:58 | NUR ---
Consent for midline placement obtained.
[2019-06-10] MEDS: ENOXAPARIN SOD INJ 40 MG/0.4 ML SYR SC SCH (17:00)
--- NOTE | 2019-06-10 17:31 | NUR ---
The family has decided that they don't want the midline and will ask the oncoming shift to try a p iv start.
--- NOTE | 2019-06-10 19:00 | NUR ---
Received bedside report from day nurse. Patient resting in bed, no s/s of distress or c/o pain at this time. Bed locked and in low position, HOB semi-Baeza's, side rails up. Call light placed within reach. Patient instructed to call for assistance if needed, verbalized understanding and demonstrated proper use of call light. All safety measures in placed. Will continue to monitor.
--- NOTE | 2019-06-10 19:04 | NUR ---
Bedside rounding completed with the oncoming nurse. Bed alarm engaged and the pt. advised to use call light to access the nurse.
--- NOTE | 2019-06-10 20:43 | NUR ---
Pulmonary Critical Care Medicine DATE 06/10/2019 SUBJECTIVE : thoracentesis out 350 cc output, left side ate 1/2 no BM REVIEW OF SYSTEMS: no double vision, no headaches OBJECTIVE: VITAL SIGNS: Vital signs reviewed per EMR HEENT: Normocephalic, atraumatic. GENERAL: Generally in bed, calm, talking NECK: Supple. Throat midline. LUNGS: Bilateral air entry, decreased breath sounds, few rhonchi. ABDOMEN: Soft, nontender. CARDIOVASCULAR: S1, S2. systolic flow murmur EXTREMITIES: No clubbing, no cyanosis. 1+ edema INTEGUMENT: No rash. No purpura. LABORATORY DATA: no new updates IMPRESSION AND PLAN: 1. Acute respiratory failure, intubated/extubated 2. s/p cardiac arrest, possibly related to her aortic stenosis 3. Hip fracture s/p operative repair. 4. CHF, diastolic/aortic stenosis. 5. Possible pneumonia. 6. Shock distributive/cardiogenic, resolved 7. Dementia. 8. fluid overload, pleural effusion 9. Hypertension, hypothyroid, history of ovarian cancer and chemotherapy finished in September 2013, degenerative joint disease, former long-term smoker. resume lovenox cont diet, follow up NMES/ST follow up. Diurese as BP tolerates --intermittent CXR aggressive PT/OT dc/ ivf d5 Thank you Dr Melo.
[2019-06-10] MEDS: BALSAM PERU/CASTOR OIL 60 GM OINT...G. TP SCH (21:44)
[2019-06-11] VITALS (7 sets, daily range): BP systolic 97–122; BP diastolic 48–78
[2019-06-11] MEDS: KETOROLAC TROMETHAMINE 30 MG/ML VIAL IV PRN (00:06)
[2019-06-11] MEDS: LORAZEPAM INJ 2 MG/ML VIAL IV PRN (02:42)
--- NOTE | 2019-06-11 04:56 | NUR ---
Dr. Melo rounding on patient. Family at bedside.
[2019-06-11] MEDS: THYROID 60 MG TAB PO SCH (05:41)
--- NOTE | 2019-06-11 06:11 | Diagnostic Imaging Report ---
EXAMINATION: CHEST SINGLE (PORTABLE) COMPARISON: 06/09/2019 INDICATION: CHF ^chf ^[id number] ^[id number] DISCUSSION: Frontal view of the chest obtained at 0537 hours. HEART AND MEDIASTINUM: Stable cardiomegaly and prominent pulmonary arteries suggestive of artery hypertension. Stable aortic calcifications. LINES: None. LUNGS: Diffuse hyperinflation. Posterior atelectasis. No interstitial edema. PLEURA: Stable pleural effusions, left larger than right. No pneumothorax BONES AND SOFT TISSUES: Stable. IMPRESSION: Bilateral pleural effusions and atelectasis. Infiltrates cannot be excluded in the appropriate clinical setting. Stable cardiomegaly. No evidence of CHF. Signed by: Dr. Peewee Hamilton MD on 06/11/2019 6:09 AM
--- NOTE | 2019-06-11 07:17 | NUR ---
Bedside report given to day nurse. Patient resting in bed, no s/s of distress or c/o pain at this time. All safety measures in place.
[2019-06-11] MEDS: CITALOPRAM HYDROBROMIDE 20 MG TAB PO SCH (09:00)
[2019-06-11] MEDS: FUROSEMIDE 40 MG TAB PO SCH (09:00)
--- NOTE | 2019-06-11 11:38 | NUR ---
Pulmonary Critical Care Medicine DATE 06/11/2019 SUBJECTIVE : RA fio2 eating 100% of diet no BM CXR mild overload, left > right effusion REVIEW OF SYSTEMS: no double vision, no headaches OBJECTIVE: VITAL SIGNS: Vital signs reviewed per EMR HEENT: Normocephalic, atraumatic. GENERAL: Generally in bed, calm, talking NECK: Supple. Throat midline. LUNGS: Bilateral air entry, decreased breath sounds, few rhonchi. ABDOMEN: Soft, nontender. CARDIOVASCULAR: S1, S2. systolic flow murmur EXTREMITIES: No clubbing, no cyanosis. 1+ edema INTEGUMENT: No rash. No purpura. LABORATORY DATA: no new updates IMPRESSION AND PLAN: 1. Acute respiratory failure, intubated/extubated 2. s/p cardiac arrest, related to her aortic stenosis 3. Hip fracture s/p operative repair. 4. CHF, diastolic/aortic stenosis. 5. Possible pneumonia. 6. Shock distributive/cardiogenic, resolved 7. Dementia. 8. fluid overload, pleural effusion 9. Hypertension, hypothyroid, hx ovarian cancer s/p CTX finished September 2013, degenerative joint disease, former long-term smoker. Continue lovenox cont diet, follow up NMES/ST follow up. Diurese as BP tolerates --intermittent CXR aggressive PT/OT family considering advanced directives Thank you Dr Melo
--- NOTE | 2019-06-11 13:42 | NUR ---
WOUND CARE CONSULT FOR FOLLOW UP WITH PATIENT R/T STAGE 2 SACRAL WOUND TREATMENT AREA REASSESSED AND PASHA SKIN PINK AND BLANCHABLE LESS REDNESS NOTED TO STAGE 2 AREA RESPONDING WELL TO VENELEX AND FOAM PROTECTION NURSING CONTINUES TO MAINTAIN STRICT/MODERATE PUP INTERVENTIONS WITH FREQUENT TURNING AND REPOSITIONING WHEN IN BED Addendum: 06/11/19 at 1346 by Kwesi Hayes RN Amended: Links added.
--- NOTE | 2019-06-11 14:20 | NUR ---
contact Dr. Melo about pt b/p. no orders given.
[2019-06-11] MEDS: ONDANSETRON HCL 4 MG ORAL DISINTEGRATING TAB PO PRN (16:25)
[2019-06-11] MEDS: ENOXAPARIN SOD INJ 40 MG/0.4 ML SYR SC SCH (16:25)
--- NOTE | 2019-06-11 19:00 | NUR ---
Received patient from day nurse, patient is stable, fall and safety precautions maintained: bed in lowest position and locked, needed items beside bed, yellow socks on patient and patient close to pt.
--- NOTE | 2019-06-11 19:19 | NUR ---
walking rounds complete, pt stable at this time.
[2019-06-12] VITALS (8 sets, daily range): BP systolic 74–99; BP diastolic 41–55
--- NOTE | 2019-06-12 | NUR ---
0300: patient received Benadryl for complains of itch.
[2019-06-12 06:28] LABS: BASOPHILS % 0.2 % (0.0-1.0); EOSINOPHILS # (AUTO) 0.1 (0.0-0.4); EOSINOPHILS % 0.6 % (0.0-6.0); HEMATOCRIT 26.5 % (34.2-44.1); HEMOGLOBIN 8.6 g/dL (12.0-16.0); LYMPHOCYTES # (AUTO) 0.7 (1.0-3.2); LYMPHOCYTES % 4.2 % (18.0-39.1); MEAN CORPUSCULAR HEMOGLOBIN 30.4 pg (28-32); MEAN CORPUSCULAR HGB CONC 32.5 g/dL (31-35); MEAN CORPUSCULAR VOLUME 93.6 fL (81-99); MONOCYTES # (AUTO) 0.9 (0.2-0.8); MONOCYTES % 5.9 % (4.4-11.3); NEUTROPHILS % 88.2 % (38.7-80.0); PLATELET COUNT 240 x10e3/uL (140-360); RED BLOOD COUNT 2.83 x10e6/uL (3.6-5.1)
[2019-06-12 06:57] LABS: ALBUMIN 2.6 g/dL (3.5-5.0); ANION GAP 14.5 mmol/L (8-16); CALCIUM 8.5 mg/dL (8.4-10.2); CREATININE, SERUM 1.42 mg/dL (0.57-1.11); POTASSIUM 4.5 mmol/L (3.5-5.1)
--- NOTE | 2019-06-12 07:14 | NUR ---
patient endorsed to next shift for continuity of care.
[2019-06-12] MEDS: THYROID 60 MG TAB PO SCH (07:18)
--- NOTE | 2019-06-12 08:00 | NUR ---
The pt. was received from the off-going nurse post bedside report and rounds. The pt. is very sleepy today but did wake up to take her med pass.
[2019-06-12] MEDS: CITALOPRAM HYDROBROMIDE 20 MG TAB PO SCH (08:54)
[2019-06-12] MEDS: BALSAM PERU/CASTOR OIL 60 GM OINT...G. TP SCH (08:54)
[2019-06-12] MEDS: FUROSEMIDE 40 MG TAB PO SCH (08:54)
--- NOTE | 2019-06-12 09:29 | NUR ---
ORDERS FOR HOME HEALTH SKILLED NURSE EVAL AND TREAT; PT/OT EVAL AND TREAT CHOICE LETTER ON CHART FOR [facility] PH: [phone] FAX: [phone] CALLED AND SPOKE WITH RAFA AT [facility] AND NOTIFIED THAT PT WILL DC HOME TODAY FAXED CLINICAL AND CONFIRMATION REC'D F/U CALL TO ENSURE THAT RAFA REC'D CLINICAL AND IS IN NETWORK WITH [facility] Addendum: 06/12/19 at 1047 by Cyndi Willingham CM please disregard above note wrong chart
--- NOTE | 2019-06-12 12:31 | NUR ---
Pulmonary Critical Care Medicine DATE 06/12/2019 SUBJECTIVE : RA fio2 ate 100% sat up family considering hospice REVIEW OF SYSTEMS: no double vision, no headaches OBJECTIVE: VITAL SIGNS: Vital signs reviewed per EMR HEENT: Normocephalic, atraumatic. GENERAL: Generally in bed, calm, talking NECK: Supple. Throat midline. LUNGS: Bilateral air entry, decreased breath sounds, few rhonchi. ABDOMEN: Soft, nontender. CARDIOVASCULAR: S1, S2. systolic flow murmur EXTREMITIES: No clubbing, no cyanosis. 1+ edema INTEGUMENT: No rash. No purpura. LABORATORY DATA: no new updates IMPRESSION AND PLAN: 1. Acute respiratory failure, intubated/extubated 2. s/p cardiac arrest, related to her aortic stenosis and post operative fluid shifting 3. Hip fracture s/p operative repair. 4. CHF, diastolic/aortic stenosis. 5. Possible pneumonia. 6. Shock distributive/cardiogenic, resolved 7. Dementia. 8. fluid overload, pleural effusion 9. Hypertension, hypothyroid, hx ovarian cancer s/p CTX finished September 2013, degenerative joint disease, former long-term smoker. Continue lovenox cont diet, follow up NMES/ST follow up. Diurese as BP tolerates --intermittent CXR aggressive PT/OT family considering advanced directives, considering hospice Thank you Dr Melo
[2019-06-12] MEDS: LACTULOSE SYRUP 20 GM/30 ML UDC PO PRN (15:39)
--- NOTE | 2019-06-12 16:00 | NUR ---
The pt's family reports that the pt. has not had a bm m in several days and a call was placed to the Dr. Melo for laxative and lactulose was ordered and given.
[2019-06-12] MEDS: ENOXAPARIN SOD INJ 40 MG/0.4 ML SYR SC SCH (17:15)
--- NOTE | 2019-06-12 17:26 | NUR ---
Nutrition Intervention Note RD Recommendation(s) for Physician: - Recommend to continue current diet regimen and consistency per ST - Recommend Ensure daily Plan of Care: RD following, monitoring for tolerance and adequacy Nutrition reason for involvement: Follow up RD Assessment 06/12: Follow up. Spoke to family member at time of visit. ST had evaluated pt and declared pt has severe pharyngeal dysphagia. Per ST note, family wanted to proceed with PO diet rather than alternative means of nutrition. Pt is currently on a pureed/honey thickened liquid diet. Family member mentioned pt ate well for breakfast this morning, but did not eat much for lunch or dinner yesterday and drink nutrition supplement. Prior to admission, family member mentioned pt was eating well. Pt also had nausea yesterday. It is documented that pt has consumed 5-90% of meals since 06/09. Will continue to monitor. 06/08: Follow up. Pt very confused, pulled out NGT and TF held. Pt discussed during am rounds, possible MBS today. Noted pallaitive care consult per chart review in afternoon. Consult nutrition if aggressive care is desired. Will continue to monitor. 06/03: Pt seen today per consult for TF rec's. Pt with cardiac arrest s/p procedure on 06/01 requiring reintubation and subsequent extubation yesterday. Dr. Freeman consulted RD during rounds to initiate TF today, order given for RD to order TF. Recommend Vital AF to best meet estimated needs. Plan for PALLIATIVE CARE NURSE PRACTITIONER evaluation as well. NGT in place, pt awake and alert on O2 per nasal canula, and RT at bedside. Will continue to monitor. (05/31/2019) Chart reviewed. Labs and meds reviewed. Initial encounter with patient. Pt with a fall last night with hip fx. Pt with a good PO intake, Pt denies any nausea or vomiting. Pt denies any difficulty chewing or swallowing. Pt is a resident of an assisted living facility. Discussed low sodium diet with Pt and family. Current Diet: GI soft diet with pureed/honey thick liquid consistency. Primary Diagnose(s): New onset heart failure PMH: HTN, repeat UTI, Hypothyroid, Cholecystectomy, obesity, dementia, thyroidectomy Ht:63 in Wt: 182lbs (06/11) 185.70lb (05/29) BMI:32 kg/m2 IBW:115lb GI: soft, non-tender, distended abdomen Skin: stage 2 sacral pressure ulcer per wound care Labs: 06/12: Na 133, Bun 49, Creat 1.42 06/03: Na 136, K 4, BUN 33, Cr 1.33, Gluc 92 Meds: lasix, lovenox, zofran, colace, Estimated Nutritional Needs: 5203-1675 calories/day (22-25 kcal/kg IBW) 78-105 g protein/day (1.5-2 g pro/kg IBW) Diet Adequacy: Not meeting calorie needs, Not meeting protein needs Diet Tolerance: tolerating PO Malnutrition Evaluation (05/31/2019) The patient does not meet criteria for a specified degree of malnutrition at this time. Will re-evaluate at follow-up as appropriate. Diet Education Needs Assessment: Diet education not indicated. Nutrition Diagnosis: Swallowing difficulty related to severe pharyngeal dysphagia as evidenced by need for modified consistency diet. Goal: Patient will meet 75-100% of estimated needs by follow up Progress: progressing Interventions: -texture- modified diet, commercial beverage Monitoring/Evaluation: -Total energy intake, total protein intake, Texture - Modified diet per PALLIATIVE CARE NURSE PRACTITIONER/MD, liquid supplement, weight change Nutrition Care Level: Moderate Signed: Cami Lara, RD, LD
--- NOTE | 2019-06-12 18:53 | NUR ---
Large brown stool and spec semt to lab
--- NOTE | 2019-06-12 19:10 | NUR ---
RECEIVED PATIENT IN REPORT.LYEING IN THE BED.STOOL OCCULT BLOOD IS POSITIVE.NOTIFIED TO .NO NEW ORDERS RECEIVED.BED ALARM ON.BED LOCKED AND IN LOWEST POSITION.PHONE AND CALL LIGHT WITHIN REACH.INSTRUCTED TO CALL FOR ASSISTANCE NEEDED.
[2019-06-12] MEDS: LORAZEPAM INJ 2 MG/ML VIAL IV PRN (21:58)
[2019-06-13] VITALS (8 sets, daily range): BP systolic 89–111; BP diastolic 47–77
--- NOTE | 2019-06-13 00:31 | NUR ---
HAD A LARGE BOWEL MOVEMENT.CLEANED ,DIAPER CHANGED.NEW ALLEVYN APPLIED.DRESSING CHANGED TO LEFT HIP.PUREWICK IS IN PLACE.DRANK 50 CC HONEY THICK LIQUID .KEEP MONITOR PATIENT.
[2019-06-13] MEDS: THYROID 60 MG TAB PO SCH (06:00)
--- NOTE | 2019-06-13 06:58 | NUR ---
BED SIDE SHIFT REPORT GIVEN TO ONCOMING RN.STABLE CONDITION.
--- NOTE | 2019-06-13 07:23 | NUR ---
The pt. is sleeping at bedside rounding and was reported to have had a difficult night.
[2019-06-13] MEDS: FUROSEMIDE 40 MG TAB PO SCH (09:00)
[2019-06-13] MEDS: CITALOPRAM HYDROBROMIDE 20 MG TAB PO SCH (09:00)
[2019-06-13] MEDS: BALSAM PERU/CASTOR OIL 60 GM OINT...G. TP SCH (09:00)
--- NOTE | 2019-06-13 14:58 | NUR ---
Report to the receiving nurse and the pt. is asleep at this time
--- NOTE | 2019-06-13 14:59 | NUR ---
The pt. has voided 3 times since the cath was removed. Report given to the receiving nurse.
--- NOTE | 2019-06-13 15:20 | NUR ---
Pulmonary Critical Care Medicine DATE 06/13/2019 SUBJECTIVE : RA fio2 some confusion received ativan no resp distress REVIEW OF SYSTEMS: no double vision, no headaches OBJECTIVE: VITAL SIGNS: Vital signs reviewed per EMR HEENT: Normocephalic, atraumatic. GENERAL: Generally in bed, awakens easily, speaks NECK: Supple. Throat midline. LUNGS: Bilateral air entry, decreased breath sounds, few rhonchi. ABDOMEN: Soft, nontender. CARDIOVASCULAR: S1, S2. systolic flow murmur EXTREMITIES: No clubbing, no cyanosis. 1+ edema INTEGUMENT: No rash. No purpura. LABORATORY DATA: no new updates IMPRESSION AND PLAN: 1. Acute respiratory failure, intubated/extubated 2. s/p cardiac arrest, related to her aortic stenosis and post operative fluid shifting 3. Hip fracture s/p operative repair. 4. CHF, diastolic/aortic stenosis. 5. Possible pneumonia. 6. Shock distributive/cardiogenic, resolved 7. Dementia. 8. fluid overload, pleural effusion 9. Hypertension, hypothyroid, hx ovarian cancer s/p CTX finished September 2013, degenerative joint disease, former long-term smoker. Continue lovenox cont diet, follow up NMES/ST follow up. Diurese as BP tolerates --intermittent CXR aggressive PT/OT family considering advanced directives, considering hospice Thank you Dr Melo
[2019-06-13] MEDS: ENOXAPARIN SOD INJ 40 MG/0.4 ML SYR SC SCH (17:16)
--- NOTE | 2019-06-13 19:02 | NUR ---
RECEIVED THE PATIENT IN REPORT.LYEING IN THE BED.AAOX0.NOT ANSWERING THE QUESTIONS.PUREWICK IN PLACE.
--- NOTE | 2019-06-13 23:27 | NUR ---
Repositioned.Assessment done.no resp distress.pure wick is in place.draining well.bed locked and in lowest position.phone and call light within reach.instructed to call for assistance as needed.
[2019-06-14] VITALS (8 sets, daily range): BP systolic 92–145; BP diastolic 41–73
[2019-06-14] MEDS: LORAZEPAM INJ 2 MG/ML VIAL IV PRN (00:16)
[2019-06-14] MEDS: THYROID 60 MG TAB PO SCH (05:20)
--- NOTE | 2019-06-14 07:00 | NUR ---
Bed side shift report given to oncoming RN.stable condition.
[2019-06-14] MEDS: FUROSEMIDE 40 MG TAB PO SCH (10:11)
[2019-06-14] MEDS: CITALOPRAM HYDROBROMIDE 20 MG TAB PO SCH (10:11)
[2019-06-14] MEDS: BALSAM PERU/CASTOR OIL 60 GM OINT...G. TP SCH (10:34)
--- NOTE | 2019-06-14 12:27 | Progress Note ---
DATE: 06/14/2019 SUBJECTIVE: The patient did well overnight, no issues, still confused from her dementia. OBJECTIVE: VITAL SIGNS: Temperature 98.2, pulse 76, blood pressure 107/47 sats above 100%. GENERAL: No apparent distress, lying in bed. CARDIOVASCULAR: Regular rate and rhythm. LUNGS: Decreased breath sounds bilaterally. ABDOMEN: Good bowel sounds. Soft, nontender. EXTREMITIES: No clubbing or cyanosis. NEUROLOGIC: Nonfocal. Moves all extremities x4 but is confused. ASSESSMENT AND PLAN: 1. Dementia. Continue with current care monitoring. 2. Hypothyroidism. Continue with current care. 3. Status post hip fracture. Continue with current postoperative care and [facility]. 4. Depression. Continue with her citalopram. 5. Anemia. Continue to monitor p.r.n. 6. Leukocytosis. Continue to monitor p.r.n. 7. Chronic kidney disease stage 3. Continue also to monitor p.r.n. Please see hospital chart for full details. MD GUTIERREZ Valentin/JEREMIAH /[id number]
--- NOTE | 2019-06-14 15:50 | NUR ---
Pulmonary Critical Care Medicine DATE 06/14/2019 SUBJECTIVE : RA fio2 No respiratory distress More energy today Mild confusion REVIEW OF SYSTEMS: no double vision, no headaches OBJECTIVE: VITAL SIGNS: Vital signs reviewed per EMR HEENT: Normocephalic, atraumatic. GENERAL: Generally in bed, awakens easily, speaks NECK: Supple. Throat midline. LUNGS: Bilateral air entry, decreased breath sounds, few rhonchi. ABDOMEN: Soft, nontender. CARDIOVASCULAR: S1, S2. systolic flow murmur EXTREMITIES: No clubbing, no cyanosis. 1+ edema INTEGUMENT: No rash. No purpura. LABORATORY DATA: no new updates IMPRESSION AND PLAN: 1. Acute respiratory failure, intubated/extubated 2. s/p cardiac arrest, related to her aortic stenosis and post operative fluid shifting 3. Hip fracture s/p operative repair. 4. CHF, diastolic/aortic stenosis. 5. Possible pneumonia. 6. Shock distributive/cardiogenic, resolved 7. Dementia. 8. fluid overload, pleural effusion 9. Hypertension, hypothyroid, hx ovarian cancer s/p CTX finished September 2013, degenerative joint disease, former long-term smoker. Continue lovenox cont diet, follow up NMES/ST follow up. Diurese as BP tolerates --intermittent CXR , next tomorrow aggressive PT/OT family considering advanced directives, considering hospice Thank you Dr Melo
[2019-06-14] MEDS: ENOXAPARIN SOD INJ 40 MG/0.4 ML SYR SC SCH (16:11)
--- NOTE | 2019-06-14 19:10 | NUR ---
change of shift report given to oncoming nurse; pt resting in bed, easily aroused; all safety measures in place. no signs of distress. pt in stable condition.
[2019-06-15] VITALS (7 sets, daily range): BP systolic 91–124; BP diastolic 41–60
[2019-06-15] MEDS: THYROID 60 MG TAB PO SCH (05:31)
--- NOTE | 2019-06-15 05:36 | NUR ---
PATIENT IS AWAKE, SHE HAS BOWEL MOVEMENT, SOFT FORMED MODERATE. CHANGED DIAPER , PUREWICK AND DRESSING TO SACRUM, APPLIED BARRIER SKIN CREAM TO GROIN AREA. PATIENT ALSO TAJE PO SCHEDULED MED WITH HONEY THICK LIQUID, TOLERATED WELL. VERBALIZES NEEDS, DENIED ANY DISCOMFORT AT THIS TIME, WILL CONTINUE TO MONITOR.
[2019-06-15 05:53] LABS: BASOPHILS % 0.3 % (0.0-1.0); EOSINOPHILS # (AUTO) 0.3 (0.0-0.4); EOSINOPHILS % 2.3 % (0.0-6.0); HEMATOCRIT 25.9 % (34.2-44.1); HEMOGLOBIN 8.3 g/dL (12.0-16.0); LYMPHOCYTES # (AUTO) 0.6 (1.0-3.2); LYMPHOCYTES % 4.7 % (18.0-39.1); MEAN CORPUSCULAR HEMOGLOBIN 29.7 pg (28-32); MEAN CORPUSCULAR VOLUME 92.8 fL (81-99); MONOCYTES % 7.2 % (4.4-11.3); NEUTROPHILS # (AUTO) 11.7 (2.1-6.9); NEUTROPHILS % 84.8 % (38.7-80.0); PLATELET COUNT 208 x10e3/uL (140-360); RED BLOOD COUNT 2.79 x10e6/uL (3.6-5.1); RED CELL DISTRIBUTION WIDTH 20.2 % (11.7-14.4)
--- NOTE | 2019-06-15 06:12 | Diagnostic Imaging Report ---
EXAMINATION: CHEST SINGLE (PORTABLE) COMPARISON: Chest x-ray 06/11/2019 INDICATION: Shortness of breath, CHF, congestion ^chf DISCUSSION: Frontal view of the chest obtained at 0541 hours. HEART AND MEDIASTINUM: Stable cardiomegaly and prominence of the pulmonary arteries suggestive of pulmonary artery hypertension. Diffuse calcifications of the thoracic aorta LINES: None. LUNGS/PLEURA: Diffuse hyperinflation suggestive of small airways disease. Haziness of the mid and lower lung zones is similar suggestive of pleural effusions and posterior atelectasis. Retrocardiac airspace opacity is stable. No pneumothorax. BONES AND SOFT TISSUES: Inferior subluxation of the right humeral head may be the result of joint effusion. No focal osseous lesions. The soft tissues are normal. IMPRESSION: Bilateral pleural effusions and bibasilar atelectasis, left greater than right. Stable cardiomegaly. Other findings as described above. Signed by: Dr. Peewee Hamilton MD on 06/15/2019 6:10 AM
[2019-06-15 06:25] LABS: ALBUMIN 2.5 g/dL (3.5-5.0); ANION GAP 13.1 mmol/L (8-16); CALCIUM 8.5 mg/dL (8.4-10.2); CREATININE, SERUM 1.04 mg/dL (0.57-1.11); MAGNESIUM 2.1 MG/DL (1.3-2.1); POTASSIUM 4.1 mmol/L (3.5-5.1)
--- NOTE | 2019-06-15 07:00 | NUR ---
BEDSIDE SHIFT REPORT RECEIVED FROM MORIS HAMEED. PT DENIES NEEDS AT THIS TIME.
[2019-06-15] MEDS: BALSAM PERU/CASTOR OIL 60 GM OINT...G. TP SCH (08:41)
[2019-06-15] MEDS: CITALOPRAM HYDROBROMIDE 20 MG TAB PO SCH (08:41)
[2019-06-15] MEDS: FUROSEMIDE 40 MG TAB PO SCH (08:41)
--- NOTE | 2019-06-15 09:00 | NUR ---
Spoke to Jesus (youngest son) at bedside with his mom. He states they would eventually like to go to [facility], likely with hospice. They did have an informational meeting Saturday with [facility]. Jesus states they are waiting for the hospital to give the push to start dc planning. This CM states it would be good to get an order from Dr. Melo to officially start hospice if that is what they would like. Jesus states Aubrey is POA, he is going to reach out to him to get the OK and then we will meet and talk with Jesus and Aubrey to get the final OK. Did speak with Carley with [facility], who states she did explain hospice would provide better symptom management and care than the acute inpt level of care she is receiving here. Confirmed also with Dr. Leo about the appropriateness of hospice care - patient continues to be in active overload, not really much change. CM to follow.
--- NOTE | 2019-06-15 11:31 | NUR ---
Spoke to Jesus and Aubrey about snf vs hospice. They are limited a little by the haines of snf with hospice care. Aubrey would like to continue with [facility] for [facility] but will be speaking to other family members first and will let Teresa A or myself know
[2019-06-15] MEDS: ENOXAPARIN SOD INJ 40 MG/0.4 ML SYR SC SCH (17:33)
--- NOTE | 2019-06-15 20:00 | NUR ---
INITIAL ASSESSMENT COMPLETE, CALL LIGHT IN REACH, PT IS ALERT AND RESPONSIVE, VERBAL, NO DISTRESS NOTED, VS WNL, TELE ON PT, IV SL, ZYRAFOAM ON SACRAL AREA, CONTINUE TO TURN, CONTINUE TO MONITOR PT, BED ALARM ON,
[2019-06-16] VITALS (8 sets, daily range): BP systolic 73–113; BP diastolic 32–63
--- NOTE | 2019-06-16 01:00 | NUR ---
Pulmonary Critical Care Medicine DATE 06/15/2019 SUBJECTIVE : RA fio2 weak, also a bit sleepy decreased leg edema CXR stable overload REVIEW OF SYSTEMS: no double vision, no headaches OBJECTIVE: VITAL SIGNS: Vital signs reviewed per EMR HEENT: Normocephalic, atraumatic. GENERAL: Generally in bed, awakens easily, speaks NECK: Supple. Throat midline. LUNGS: Bilateral air entry, decreased breath sounds, few rhonchi. ABDOMEN: Soft, nontender. CARDIOVASCULAR: S1, S2. systolic flow murmur EXTREMITIES: No clubbing, no cyanosis. 1+ edema INTEGUMENT: No rash. No purpura. LABORATORY DATA: no new updates IMPRESSION AND PLAN: 1. Acute respiratory failure, intubated/extubated 2. s/p cardiac arrest, related to her aortic stenosis and post operative fluid shifting 3. Hip fracture s/p operative repair. 4. CHF, diastolic/aortic stenosis. 5. Possible pneumonia. 6. Shock distributive/cardiogenic, resolved 7. Dementia. 8. fluid overload, pleural effusion 9. Hypertension, hypothyroid, hx ovarian cancer s/p CTX finished September 2013, degenerative joint disease, former long-term smoker. Continue lovenox cont diet, follow up NMES/ST follow up. Diurese as BP tolerates --intermittent CXR, next tomorrow aggressive PT/OT family considering advanced directives, considering hospice Thank you Dr Melo
[2019-06-16] MEDS: THYROID 60 MG TAB PO SCH (05:47)
--- NOTE | 2019-06-16 07:03 | NUR ---
RECEIVED BEDSIDE REPORT FROM YOSEPH ADAMES. PATIENT RESTING AT THIS TIME, NO VISIBLE SIGNS OF DISTRESS NOTED. FAMILY AT BEDSIDE. CALL LIGHT WITHIN REACH.
--- NOTE | 2019-06-16 07:28 | NUR ---
BEDSIDE REPORT GIVEN, FAMILY AT BEDSIDE, PT IS ALERT AND AWAKE, BATH THIS MORNING, LINEN CHANGED, NO DISTRESS NOTED
[2019-06-16] MEDS: FUROSEMIDE 20 MG TAB PO SCH (09:00)
[2019-06-16] MEDS: BALSAM PERU/CASTOR OIL 60 GM OINT...G. TP SCH (09:34)
[2019-06-16] MEDS: CITALOPRAM HYDROBROMIDE 20 MG TAB PO SCH (09:46)
--- NOTE | 2019-06-16 11:59 | NUR ---
SPOKE WITH SON AND HE SIGNED CHOICE FOR [facility], FILED IN CHART. ATTEMPTED TO FAX TO [facility], SPOKE WITH EL, SHE WILL SEND SOMEONE TO [facility] FAX IS NOT GOING THROUGH.
[2019-06-16] MEDS: ACETAMINOPHEN 325 MG TAB PO PRN (13:20)
[2019-06-16] MEDS: ENOXAPARIN SOD INJ 40 MG/0.4 ML SYR SC SCH (17:16)
[2019-06-17] VITALS (8 sets, daily range): BP systolic 77–118; BP diastolic 37–52
--- NOTE | 2019-06-17 03:44 | NUR ---
Pulmonary Critical Care Medicine DATE 06/16/2019 SUBJECTIVE : RA fio2 stood up transiently lower bp ate well REVIEW OF SYSTEMS: no double vision, no headaches OBJECTIVE: VITAL SIGNS: Vital signs reviewed per EMR HEENT: Normocephalic, atraumatic. GENERAL: Generally in bed, awakens easily, speaks NECK: Supple. Throat midline. LUNGS: Bilateral air entry, decreased breath sounds, few rhonchi. ABDOMEN: Soft, nontender. CARDIOVASCULAR: S1, S2. systolic flow murmur EXTREMITIES: No clubbing, no cyanosis. 1+ edema INTEGUMENT: No rash. No purpura. LABORATORY DATA: no new updates IMPRESSION AND PLAN: 1. Acute respiratory failure, intubated/extubated 2. s/p cardiac arrest, related to her aortic stenosis and post operative fluid shifting 3. Hip fracture s/p operative repair. 4. CHF, diastolic/aortic stenosis. 5. Possible pneumonia. 6. Shock distributive/cardiogenic, resolved 7. Dementia. 8. fluid overload, pleural effusion 9. Hypertension, hypothyroid, hx ovarian cancer s/p CTX finished September 2013, degenerative joint disease, former long-term smoker. Continue lovenox cont diet, follow up NMES/ST follow up. Diurese as BP tolerates --intermittent CXR aggressive PT/OT family considering advanced directives, considering hospice vs other Thank you Dr Melo
[2019-06-17] MEDS: THYROID 60 MG TAB PO SCH (06:06)
--- NOTE | 2019-06-17 07:30 | NUR ---
Received patient this morning and alert and responsive, no resp distress, pains well managed and call light within reach, will monitor. Report received and rounds completed.
--- NOTE | 2019-06-17 08:26 | NUR ---
SPOKE WITH DAUGHTER ABOUT NOTIFICATION FROM [facility] NOT IN NETWORK, SHE STATES TO FORWARD REFERRAL TO [facility]. CALLED REP TO [facility] AND FIXED RTF AND [facility].
[2019-06-17] MEDS: ACETAMINOPHEN 325 MG TAB PO PRN (08:27)
[2019-06-17] MEDS: BALSAM PERU/CASTOR OIL 60 GM OINT...G. TP SCH (09:02)
[2019-06-17] MEDS: FUROSEMIDE 20 MG TAB PO SCH (09:02)
[2019-06-17] MEDS: CITALOPRAM HYDROBROMIDE 20 MG TAB PO SCH (09:02)
[2019-06-17] MEDS: ASPIRIN 81 MG ENTERIC COATED PO SCH (09:02)
--- NOTE | 2019-06-17 12:01 | NUR ---
Pulmonary Critical Care Medicine DATE 06/17/2019 SUBJECTIVE : Calm stable mentation REVIEW OF SYSTEMS: no double vision, no headaches OBJECTIVE: VITAL SIGNS: Vital signs reviewed per EMR HEENT: Normocephalic, atraumatic. GENERAL: Generally in bed, awakens easily, speaks NECK: Supple. Throat midline. LUNGS: Bilateral air entry, decreased breath sounds, few rhonchi. ABDOMEN: Soft, nontender. CARDIOVASCULAR: S1, S2. systolic flow murmur EXTREMITIES: No clubbing, no cyanosis. 1+ edema INTEGUMENT: No rash. No purpura. LABORATORY DATA: no new updates IMPRESSION AND PLAN: 1. Acute respiratory failure, intubated/extubated 2. s/p cardiac arrest, related to her aortic stenosis and post operative fluid shifting 3. Hip fracture s/p operative repair. 4. CHF, diastolic/aortic stenosis. 5. Possible pneumonia. 6. Shock distributive/cardiogenic, resolved 7. Dementia. 8. fluid overload, pleural effusion 9. Hypertension, hypothyroid, hx ovarian cancer s/p CTX finished September 2013, degenerative joint disease, former long-term smoker. Continue lovenox DVT ppx cont diet, follow up NMES/ST follow up. Diurese as BP tolerates --intermittent CXR aggressive PT/OT family considering advanced directives, disposition Thank you Dr Melo
--- NOTE | 2019-06-17 15:40 | NUR ---
Nutrition Intervention Note RD Recommendation(s) for Physician: - Recommend to continue current diet regimen and consistency per ST - Recommend Ensure daily Plan of Care: RD following, monitoring for tolerance and adequacy Nutrition reason for involvement: Follow up RD Assessment 06/17: Follow up. Pt sleeping at time of visit, no family at bedside. Pt continues with fluctuating po intake, noted 10-100% of meals per chart. Pt continues on modified diet per GRAVURE PR[employer] SET UP OPERATOR and Ensure Enlive with breakfast. No difficulties with diet or GI distress reported by RN during am rounds. Pt pending discharge to SNF. Chart reviewed. Will monitor and continue to follow. 06/12: Follow up. Spoke to family member at time of visit. ST had evaluated pt and declared pt has severe pharyngeal dysphagia. Per ST note, family wanted to proceed with PO diet rather than alternative means of nutrition. Pt is currently on a pureed/honey thickened liquid diet. Family member mentioned pt ate well for breakfast this morning, but did not eat much for lunch or dinner yesterday and drink nutrition supplement. Prior to admission, family member mentioned pt was eating well. Pt also had nausea yesterday. It is documented that pt has consumed 5-90% of meals since 06/09. Will continue to monitor. 06/08: Follow up. Pt very confused, pulled out NGT and TF held. Pt discussed during am rounds, possible MBS today. Noted pallaitive care consult per chart review in afternoon. Consult nutrition if aggressive care is desired. Will continue to monitor. 06/03: Pt seen today per consult for TF rec's. Pt with cardiac arrest s/p procedure on 06/01 requiring reintubation and subsequent extubation yesterday. Dr. Freeman consulted RD during rounds to initiate TF today, order given for RD to order TF. Recommend Vital AF to best meet estimated needs. Plan for GRAV[employer] SET UP OPERATOR evaluation as well. NGT in place, pt awake and alert on O2 per nasal canula, and RT at bedside. Will continue to monitor. (05/31/2019) Chart reviewed. Labs and meds reviewed. Initial encounter with patient. Pt with a fall last night with hip fx. Pt with a good PO intake, Pt denies any nausea or vomiting. Pt denies any difficulty chewing or swallowing. Pt is a resident of an assisted living facility. Discussed low sodium diet with Pt and family. Current Diet: GI soft diet with pureed/honey thick liquid consistency. Primary Diagnose(s): New onset heart failure PMH: HTN, repeat UTI, Hypothyroid, Cholecystectomy, obesity, dementia, thyroidectomy Ht:63 in Wt: 182lbs (06/11) 185.70lb (05/29) BMI:32 kg/m2 IBW:115lb GI: LBM 06/15 Skin: stage 2 sacral pressure ulcer per wound care Labs: 06/15: Na 135, K 4.1, BUN 53, Cr 1.04, Gluc 82 Meds:thyroid, lactulose, zofran, phenergan, colace Estimated Nutritional Needs: 4906-8591 calories/day (22-25 kcal/kg IBW) 78-105 g protein/day (1.5-2 g pro/kg IBW) Diet Adequacy: Not meeting calorie needs, Not meeting protein needs Diet Tolerance: tolerating PO Malnutrition Evaluation (05/31/2019) The patient does not meet criteria for a specified degree of malnutrition at this time. Will re-evaluate at follow-up as appropriate. Diet Education Needs Assessment: Diet education not indicated. Nutrition Diagnosis: Swallowing difficulty related to severe pharyngeal dysphagia as evidenced by need for modified consistency diet. Goal: Patient will meet 75-100% of estimated needs by follow up Progress: progressing Interventions: -texture- modified diet, commercial beverage Monitoring/Evaluation: -Total energy intake, total protein intake, Texture - Modified diet per GRAVURE PR[employer] SET UP OPERATOR/MD, liquid supplement, weight change Nutrition Care Level: Moderate Signed: Yvonne Dunn RD, LD, [facility]
--- NOTE | 2019-06-17 15:56 | NUR ---
Patient alert and responsive, BP improved, PT worked with patient, able to get OOB and bedside exercises, some dizziness noted, no significant adverse event, call light within reach, will monitor, bed alarms in place.
--- NOTE | 2019-06-17 19:00 | NUR ---
RECEIVED PATIENT IN BEDSIDE SHIFT REPORT. PATIENT SLEEPING, BUT AROUSABLE TO VERBAL STIMULI. NO PAIN REPORTED. NO S&S OF DISTRESS NOTED. BED LOCKED IN LOWEST POSITION, SIDE RAILS UPX2, CALL LIGHT IN REACH. BED ALARM ACTIVE.
[2019-06-18] VITALS (8 sets, daily range): BP systolic 93–122; BP diastolic 41–60
[2019-06-18] MEDS: THYROID 60 MG TAB PO SCH (04:56)
[2019-06-18] MEDS: ACETAMINOPHEN 325 MG TAB PO PRN ×3 (04:56→22:58)
--- NOTE | 2019-06-18 07:21 | NUR ---
Received patient and alert and responsive, in bed, no distress, call light within reach, will monitor, no distress at this time
[2019-06-18] MEDS: CITALOPRAM HYDROBROMIDE 20 MG TAB PO SCH (09:00)
[2019-06-18] MEDS: BALSAM PERU/CASTOR OIL 60 GM OINT...G. TP SCH (09:00)
[2019-06-18] MEDS: ASPIRIN 81 MG ENTERIC COATED PO SCH (09:00)
--- NOTE | 2019-06-18 16:32 | NUR ---
ALF FACILITY DISCHARGE INFORMATION PATIENT HAS BEEN ACCEPTED TO: NAME: PASHA LADD ADDRESS:[id number] [place] [address] ACCEPTING CLAIM ADJUSTER: CARMELLA HAINES MD:ROMAN ROOM:[id number] NURSE CALL REPORT TO: [phone] IMM SIGNED AND OBTAINED AND FILED IN CHART WITH OOH DNR AND POA
--- NOTE | 2019-06-18 16:33 | NUR ---
SPOKE WITH DAUGHTER, BOTH SONS AND MD. PT NEED OOH FORM COMPLETED, ALL ARE IN AGREEMENT THAT PT CAN DISCHARGE IN AM AFTER MD SIGNS THE OOH DNR.
[2019-06-18] MEDS: LACTULOSE SYRUP 20 GM/30 ML UDC PO PRN (16:41)
--- NOTE | 2019-06-18 19:00 | NUR ---
RECEIVED PATIENT IN BEDSIDE SHIFT REPORT. PATIENT RESTING IN BED AT THIS TIME. NO PAIN REPORTED. NO S&S OF DISTRESS NOTED. ALTERNATING PRESSURE PUMP ACTIVE. PATIENT REFUSING FOOT PUMPS AT THIS TIME. BED LOCKED IN LOWEST POSITION, SIDE RAILS UPX2, CALL LIGHT IN REACH.
--- NOTE | 2019-06-18 20:28 | NUR ---
Pulmonary Critical Care Medicine DATE 06/18/2019 SUBJECTIVE : STable breathing REVIEW OF SYSTEMS: no double vision, no headaches OBJECTIVE: VITAL SIGNS: Vital signs reviewed per EMR HEENT: Normocephalic, atraumatic. GENERAL: Generally in bed, awakens easily, speaks NECK: Supple. Throat midline. LUNGS: Bilateral air entry, decreased breath sounds, few rhonchi. ABDOMEN: Soft, nontender. CARDIOVASCULAR: S1, S2. systolic flow murmur EXTREMITIES: No clubbing, no cyanosis. 1+ edema INTEGUMENT: No rash. No purpura. LABORATORY DATA: no new updates IMPRESSION AND PLAN: 1. Acute respiratory failure, intubated/extubated 2. s/p cardiac arrest, related to her aortic stenosis and post operative fluid shifting 3. Hip fracture s/p operative repair. 4. CHF, diastolic/aortic stenosis. 5. Possible pneumonia. 6. Shock distributive/cardiogenic, resolved 7. Dementia. 8. fluid overload, pleural effusion 9. Hypertension, hypothyroid, hx ovarian cancer s/p CTX finished September 2013, degenerative joint disease, former long-term smoker. Continue lovenox DVT ppx cont diet, follow up NMES/ST follow up. Diurese as BP tolerates, on hold temporarily --intermittent CXR aggressive PT/OT family considering advanced directives, disposition Thank you Dr Melo
[2019-06-18] MEDS: ONDANSETRON HCL 4 MG ORAL DISINTEGRATING TAB PO PRN (21:21)
[2019-06-19 00:25] VITALS: BP 93/50
[2019-06-19 04:00] VITALS: BP 132/79
--- NOTE | 2019-06-19 05:58 | Discharge Summary ---
DISCHARGE DIAGNOSES: 1. Left hip fracture, status post repair. 2. Diastolic heart failure, acute on chronic. 3. Hypothyroidism. 4. Dementia. HISTORY OF PRESENT ILLNESS AND HOSPITAL COURSE: The patient is a lady, who presented with some acute shortness of breath. She was found to have acute on chronic diastolic heart failure that was initially managed with diuretics, but the diuretics were discontinued when she started having some low blood pressure. She is able to be well compensated with diet control and monitoring. While in the hospital, the patient was noticed to have significant signs of dementia as well as in the middle of the night, she unfortunately got up and fell and sustained a left hip fracture that was repaired by Orthopedics without complications. Having discussions with the family, it is obvious that the patient could not be in assisted living by herself, so she was then transferred over to [facility] for assisted facility. Please see also chart for full details. MD GUTIERREZ Valentin/JEREMIAH /[id number]
[2019-06-19] MEDS: THYROID 60 MG TAB PO SCH (06:54)
--- NOTE | 2019-06-19 07:14 | NUR ---
Received patient and a/ox3, no distress, bed alarms in place, rounds completed and will monitor.
--- NOTE | 2019-06-19 07:37 | NUR ---
BP checked manually and 110/70
--- NOTE | 2019-06-19 07:53 | NUR ---
Report given to STANLEY Hale at [facility], once son signs transfer choice letter, patient will be transferred.
[2019-06-19 08:11] VITALS: BP 151/73
[2019-06-19 08:43] VITALS: BP 110/67
[2019-06-19] MEDS: ASPIRIN 81 MG ENTERIC COATED PO SCH (08:43)
[2019-06-19] MEDS: CITALOPRAM HYDROBROMIDE 20 MG TAB PO SCH (08:43)
[2019-06-19] MEDS: BALSAM PERU/CASTOR OIL 60 GM OINT...G. TP SCH (08:43)
--- NOTE | 2019-06-19 09:05 | NUR ---
Patient stable, discharge package complete, IV line removed, Patient had a BM and incontinence care provided, all consults cleared for transfer to SNF.
== END 2019-06-19 09:26 | DRG 981 ==
LOC: ER 14:01 → INTOOBSV 19:22 → ERHOLD 19:22 → MED/SURG3 19:30 → OBSVTOIN 05-31 13:45 → IMCU 06-01 12:07 → ICU 06-01 13:43 → MED/SURG 06-07 16:04
PROVIDERS: ADMIT Internal Medicine; ATTEND Internal Medicine
PROC: 5A1945Z Respiratory Ventilation, 24-96 Consecutive Hours (ICD-10-PCS; 2019-06-01)
PROC: 0BH18EZ Insertion of Endotracheal Airway into Trachea, Via Natural or Artificial Opening Endoscopic (ICD-10-PCS; 2019-06-01)
PROC: 5A12012 Performance of Cardiac Output, Single, Manual (ICD-10-PCS; 2019-06-01)
PROC: 02HV33Z Insertion of Infusion Device into Superior Vena Cava, Percutaneous Approach (ICD-10-PCS; 2019-06-01)
PROC: 0QS736Z Reposition Left Upper Femur with Intramedullary Internal Fixation Device, Percutaneous Approach (ICD-10-PCS; principal; 2019-06-01 09:00)
PROC: 0DH67UZ Insertion of Feeding Device into Stomach, Via Natural or Artificial Opening (ICD-10-PCS; 2019-06-02)
PROC: 0W9B3ZX Drainage of Left Pleural Cavity, Percutaneous Approach, Diagnostic (ICD-10-PCS; 2019-06-09)
DX: I13.0 Hypertensive heart and chronic kidney disease with heart failure and stage 1 through stage 4 chronic kidney disease, or unspecified chronic kidney disease (principal); I50.33 Acute on chronic diastolic (congestive) heart failure; S72.142A Displaced intertrochanteric fracture of left femur, initial encounter for closed fracture; I46.9 Cardiac arrest, cause unspecified; J96.01 Acute respiratory failure with hypoxia; G93.41 Metabolic encephalopathy; L03.116 Cellulitis of left lower limb; L03.115 Cellulitis of right lower limb; N39.0 Urinary tract infection, site not specified; N18.3 Chronic kidney disease, stage 3 (moderate); W06.XXXA Fall from bed, initial encounter; Y92.230 Patient room in hospital as the place of occurrence of the external cause; E11.22 Type 2 diabetes mellitus with diabetic chronic kidney disease; Z66 Do not resuscitate; E03.9 Hypothyroidism, unspecified; D64.9 Anemia, unspecified; E66.9 Obesity, unspecified; Z68.32 Body mass index [BMI] 32.0-32.9, adult; L89.152 Pressure ulcer of sacral region, stage 2; F03.90 Unspecified dementia, unspecified severity, without behavioral disturbance, psychotic disturbance, mood disturbance, and anxiety; I48.91 Unspecified atrial fibrillation; K74.60 Unspecified cirrhosis of liver; I08.0 Rheumatic disorders of both mitral and aortic valves; M15.9 Polyosteoarthritis, unspecified; Z78.1 Physical restraint status; Z87.891 Personal history of nicotine dependence; I83.93 Asymptomatic varicose veins of bilateral lower extremities; Z88.1 Allergy status to other antibiotic agents; Z88.5 Allergy status to narcotic agent; Z88.8 Allergy status to other drugs, medicaments and biological substances; R13.10 Dysphagia, unspecified; R53.81 Other malaise; Z85.43 Personal history of malignant neoplasm of ovary; Z87.440 Personal history of urinary (tract) infections
CPT/HCPCS: 32555; 36415; 36600; 71045; 74230; 74470; 76000; 76604; 80048; 80053; 80061; 80076; 80202; 81001; 82270; 82550; 82553; 82805; 82948; 83615; 83735; 83880; 84443; 84484; 85025; 85610; 85730; 87070; 87205; 93005; 93306; 93970; 94002; 94003; 97139; 99284; C1713; G0378; J0171; J0330; J0461; J1100; J1170; J1200; J1650; J1885; J1940; J1956; J2001; J2060; J2250; J2370; J2405; J3370; J3480; J7030; J7050; J7070; Q0162